=== PATIENT | male | born 1945 | race Caucasian/White ===

== ENCOUNTER → 2018-07-18 07:05 | Outpatient (CLI) | payer MEDICARE, OTHER, SELFPAY ==
[2018-07-18 08:20] LABS: Add Manual Diff / Slide Review NO; Basophils Percent Auto 0.8 % (0-2); Eosinophils Percent Auto 6.2 % (2-4); Hematocrit 42.9 % (41-53); Hemoglobin 14.9 g/dL (13.5-17.5); Lymphocytes Percent Auto 29.3 % (25-40); Mean Corpuscular HGB Conc 34.6 % (30-36); Mean Corpuscular Volume 92.5 fL (80-100); Monocytes Percent Auto 8.6 % (3-14); Neutrophils Absolute Auto 3500 /uL (3000-5900); Neutrophils Percent Auto 55.1 % (50-75); Platelet Count 247 X10^3/uL (150-400); Red Blood Cell Count 4.63 X10^6/uL (4.5-5.9); Red Cell Distribution Width 13.4 % (11.6-14.8); White Blood Cell Count 6.3 X10^3/uL (4.5-11.0)
[2018-07-18 08:44] LABS: Alanine Aminotransferase 22 IU/L (21-72); Albumin 4.3 g/dL (3.5-5.0); Albumin Globulin Ratio 1.6 (1.0-2.8); Alkaline Phosphatase 86 U/L (38-126); Aspartate Aminotransferase 27 IU/L (17-59); BUN Creatinine Ratio 11.4 (6-22); Bilirubin Total 0.6 mg/dL (0.2-1.3); Blood Urea Nitrogen 8 mg/dL (9-20); Calcium 9.9 mg/dL (8.4-10.2); Carbon Dioxide 28 mmol/L (22-32); Chloride 106 mmol/L (98-107); Cholesterol 155 mg/dL (140-199); Estimated Glomerular Filt Rate > 60.0 mL/min (>60); Globulin 2.7 g/dL (1.7-4.1); Glucose 101 mg/dL (80-110); HDL Cholesterol 48 mg/dL (40-60); HEMOLYSIS < 15 (0-50); LDL Cholesterol Calculated 88 mg/dL (<100); Potassium 3.9 mmol/L (3.4-5.1); Sodium 146 mmol/L (137-145); Triglycerides 94 mg/dL (35-150)
[2018-07-18 09:11] LABS: Thyroid Stimulating Hormone 2.29 uIU/mL (0.47-4.68)
== END ==
PROVIDERS: PCP Family Medicine; Visit Provider Family Medicine
DX: E21.3 Hyperparathyroidism, unspecified (principal); E78.5 Hyperlipidemia, unspecified; E83.52 Hypercalcemia; I10 Essential (primary) hypertension; N40.2 Nodular prostate without lower urinary tract symptoms; Z12.5 Encounter for screening for malignant neoplasm of prostate
CPT/HCPCS: 36415; 80053; 80061; 84443; 85025; G0103

== ENCOUNTER → 2019-01-02 07:19 | Outpatient (CLI) | payer MEDICARE, OTHER, SELFPAY ==
[2019-01-02 09:27] LABS: Cholesterol 160 mg/dL (140-199); HDL Cholesterol 47 mg/dL (40-60); LDL Cholesterol Calculated 100 mg/dL (<100); Triglycerides 63 mg/dL (35-150)
== END ==
PROVIDERS: Family Provider Orthopaedic Surgery; PCP Family Medicine; Visit Provider Registered Nurse
DX: E78.5 Hyperlipidemia, unspecified (principal)
CPT/HCPCS: 36415; 80061

== ENCOUNTER 2019-01-14 10:54 | Emergency (ER) | payer MEDICARE, OTHER, SELFPAY ==
[2019-01-14 11:21] VITALS: BP 150/69; PULSE 61; RESP 18; TEMP 36.9; O2SAT 100; BMI 34.3
--- NOTE | 2019-01-14 12:34 | ED.EXTPRO ---
HPI - Extremity Problem <Michelle Yepez PA-C - Last Filed: 01/14/19 18:45> General Chief complaint: Extremity Problem,Nontraumatic Stated complaint: lump lower right leg/poss clot Time Seen by Provider: 01/14/19 12:21 Source: patient Mode of arrival: ambulatory Limitations: no limitations History of Present Illness HPI Narrative: This 73-year-old male comes in due to a new lump on the right leg that he noticed yesterday. He states that this is not painful or bothersome, he noticed it in the shower after a 15 mile bike ride. He states that he has lost about 25 lb recently with diet and exercise, and possible that he has had this longer and just appeared due to weight loss. He denies any trauma. he denies any dyspnea, chest pain, or other new complaints on systems review. He states that he does have a history of some mild swelling in the lower extremities for a long time, he thinks worse on the left. No changes noted. Related Data Home Medications Medication Instructions Recorded Confirmed loratadine [Claritin] 10 mg PO PRN #0 10/20/11 12/05/18 Fish Oil (#FISH OIL CONCENTRATE) 1,000 mg PO QDAY #0 11/28/11 12/05/18 MULTIVITAMIN (#MULTIPLE VITAMINS) 1 cap PO QDAY #0 12/13/11 12/05/18 Ketotifen Fumarate (ZADITOR 0.025%) 1 drp OPHTH PRN #5 ml 02/13/13 12/05/18 cholecalciferol (vitamin D3) 1,000 3,000 unit PO DAILY cap 07/25/18 12/05/18 unit capsule amlodipine [Norvasc] 5 mg PO DAILY 01/14/19 01/14/19 simvastatin 5 mg PO BEDTIME 01/14/19 01/14/19 Previous Rx's Medication Instructions Recorded losartan 50 mg PO BID #180 tab 07/03/18 albuterol sulfate HFA 90 2 inhalation INHALATION Q4H PRN #1 07/25/18 mcg/actuation aerosol inhaler each azelastine 137 mcg (0.1 %) nasal 2 spray NASAL BID #30 ml 07/25/18 spray aerosol Allergies Allergy/AdvReac Type Severity Reaction Status Date / Time adhesive [ADHESIVE] AdvReac Mild most tapes Verified 01/14/19 11:23 ok, not sure which one caused a rsh hydromorphone [HYDROMORPHONE] AdvReac Mild iv caused Verified 01/14/19 11:23 n/v metronidazole [METRONIDAZOLE] AdvReac Mild n/v Verified 01/14/19 11:23 Penicillins [PENICILLINS] AdvReac Mild n/v Verified 01/14/19 11:23 Review of Systems <Michelle Yepez PA-C - Last Filed: 01/14/19 18:45> Review of Systems ROS Unobtainable: All systems reviewed & are unremarkable except as noted in HPI and below PFSH <Michelle Yepez PA-C - Last Filed: 01/14/19 18:45> Medical History Dandruff (Chronic) Genital warts (Chronic) Hearing loss (Chronic) Hypercalcemia (Chronic) Hypercholesterolemia (Chronic) Hypertension (Chronic) Hyperthyroidism (Chronic) Obesity (Chronic) Prediabetes (Chronic) Vitamin D deficiency (Chronic) Depression (Resolved) Surgical History (Updated 06/26/18 @ 17:00 by Anitra Kidd) History of cataract removal with insertion of prosthetic lens (Resolved) History of hip replacement (Resolved 02/19/13) History of knee replacement (Resolved 12/13/11) History of knee replacement (Resolved 12/11/14) History of orthopedic surgery (Resolved 07/1998) Status post blepharoplasty of both eyes (Resolved 10/27/09) Status post hernia repair (Resolved 01/17/14) Status post laminectomy (Resolved 05/17/11) Family History (Updated 06/26/18 @ 16:58 by Anitra Kidd) Father Alcoholism Mother FH: ovarian cancer Malignant neoplasm of esophagus, unspecified location Alcoholism Sister Age: 73 History of breast cancer Osteoarthritis of spine, unspecified spinal osteoarthritis complication status, unspecified spinal region Grandfather Alcoholism Liver disease Grandmother No problems noted. Family/Other Liver cancer Social History Smoking Status: Never smoker Family History (Updated 06/26/18 @ 16:58 by Anitra Kidd) Father Alcoholism Mother FH: ovarian cancer Malignant neoplasm of esophagus, unspecified location Alcoholism Sister Age: 73 History of breast cancer Osteoarthritis of spine, unspecified spinal osteoarthritis complication status, unspecified spinal region Grandfather Alcoholism Liver disease Grandmother No problems noted. Family/Other Liver cancer Social History Smoking Status: Never smoker Exam <BENIGNO Drummond Last Filed: 01/14/19 18:45> Narrative Exam Narrative: GENERAL APPEARANCE: Patient sitting comfortably, in no distress. NECK/THYROID: Neck supple LUNGS: Clear to auscultation bilaterally. HEART: Regular rate and rhythm without murmur, normal S1, S2, no S3 or S4. EXTREMITIES: No cyanosis or edema. No calf tenderness. numerous small varicosities noted bilaterally NEUROLOGIC: Sensation is grossly intact in the lower extremities DERMATOLOGIC: Right mid ferguson there is a circumscribed, nummular, freely mobile firm but not hard mass approximately 3.5 cm in diameter. There is no overlying skin retraction or abnormality. This is nontender Initial Vital Signs Initial Vital Signs: Vital Signs Temperature 98.5 F 01/14/19 11:21 Pulse Rate 61 01/14/19 11:21 Respiratory Rate 18 01/14/19 11:21 Blood Pressure 150/69 H 01/14/19 11:21 Pulse Oximetry 100 01/14/19 11:21 <Abi Banegas DO - Last Filed: 01/17/19 07:33> Initial Vital Signs Initial Vital Signs: Vital Signs Temperature 98.5 F 01/14/19 11:21 Pulse Rate 61 01/14/19 11:21 Respiratory Rate 18 01/14/19 11:21 Blood Pressure 150/69 H 01/14/19 11:21 Pulse Oximetry 100 01/14/19 11:21 Course <Michelle Yepez PA-C - Last Filed: 01/14/19 18:45> Additional Information: Reviewed findings with patient, this is freely mobile on exam and appears consistent with that on x-ray, could be cystic, possible lipoma as he has had them in the past. Not clear whether this is truly new as patient has lost a considerable amount of weight recently and this is not causing any discomfort. Advised that this needs further workup, but can be done as an outpatient. He is agreeable and will f/u with PCP Orders Ordered: ED Orders 01/14/19 12:44 XR tibia fibula RT 2V Stat Vital Signs - 8 hr 01/14/19 11:21 01/14/19 13:48 Temperature 98.5 F 98.0 F Pulse Rate 61 69 Respiratory Rate 18 18 Blood Pressure 150/69 H Pulse Oximetry 100 99 <Abi Banegas DO - Last Filed: 01/17/19 07:33> Orders Ordered: ED Orders 01/14/19 12:44 XR tibia fibula RT 2V Stat Vital Signs - 8 hr 01/14/19 11:21 01/14/19 13:48 Temperature 98.5 F 98.0 F Pulse Rate 61 69 Respiratory Rate 18 18 Blood Pressure 150/69 H Pulse Oximetry 100 99 MDM - Extremity (Nontraumatic) <Michelle Yepez PA-C - Last Filed: 01/14/19 18:45> Imaging Data tib/fib: Radiologist's impression: [address] [address] XRay Report Signed Patient: Valentino Madison LMR#: [id number] : 4Acct:[id number] Age/Sex: 73 / MDate of Service: 01/14/19 Loc: ED Accession Number: [id number] Procedure: XR tibia fibula RT 2V Ordering Provider: Michelle Yepez P.A-C PROCEDURE: XR TIBIA FUBULA RT 2V INDICATIONS: painless mass on mid ferguson TECHNIQUE: 2 views of the tibia and fibula were acquired. COMPARISON: None. FINDINGS: Bones: No fractures or dislocations. No suspicious bony lesions. Soft tissues: No suspicious soft tissue calcifications but there is a masslike structure that measures soft tissue in radiodensity at the anterior border of the middle third of the diaphysis of the tibia, measuring up to 2.6 cm craniocaudad and 9 mm AP dimension. It cannot be clearly seen on the frontal projection but is clearly visible on the lateral view. IMPRESSION: A soft tissue masslike structure is found that appears to correlate with the clinical history provided. MR scanning with contrast is recommended to assess for underlying etiology. This structure measures up to 2.6 cm craniocaudad and 9 mm AP dimension. Osseous erosion is not present at the immediate adjacent anterior cortical margin of the mid tibia. A soft tissue sarcoma is a potential etiology of this appearance. Dictated by: Mingo Edwards M.D. on 01/14/2019 at 13:17 Approved by: Mingo Edwards M.D. on 01/14/2019 at 13:20 Discharge Plan Departure Patient Disposition: Home Clinical Impression: Localized swelling, mass and lump, right lower limb Discharge Date/Time: 01/14/19 13:48 Interventions: ED Discharge Assessment Last Done: 01/14/19 13:48 Activity Restrictions/Additional Instructions: For now since this lump you have noticed on your leg is not bothering you, you can monitor it. It could be a cyst or fatty growth. The radiologist has recommended doing some further imaging of it to get a better look, but on x-ray and on exam today it does not appear to invade the bone. It is possible that it has been present for some time given your recent weight loss. Please follow-up with your PCP in the next week or so to re-evaluate this and determine whether any changes and to set up more studies as an outpatient such as ultrasound. Prescriptions: No Action loratadine [Claritin] 10 MG tablet 10 mg PO PRN Qty: 0 RF: 0 Fish Oil (#FISH OIL CONCENTRATE) 1,000 mg PO QDAY Qty: 0 RF: 0 MULTIVITAMIN (#MULTIPLE VITAMINS) 1 cap PO QDAY Qty: 0 RF: 0 Ketotifen Fumarate (ZADITOR 0.025%) 1 drp OPHTH PRN Qty: 5 RF: 0 losartan 50 mg tablet 50 mg PO BID Qty: 180 RF: 3 cholecalciferol (vitamin D3) 1,000 unit capsule 3,000 unit PO DAILY RF: 0 albuterol sulfate [Ventolin HFA] 90 mcg/actuation HFA aerosol inhaler 2 inhalation INHALATION Q4H PRN (Reason: shortness of breath or wheezing) Qty: 1 RF: 12 azelastine 137 mcg (0.1 %) aerosol,spray 2 spray NASAL BID Qty: 30 RF: 1 amlodipine [Norvasc] 5 mg tablet 5 mg PO DAILY RF: 0 simvastatin 5 mg tablet 5 mg PO BEDTIME RF: 0 Referrals: Cecile Dias DO [Primary Care Provider] - <Abi Banegas DO - Last Filed: 01/17/19 07:33> Cosign ED Attending Alanature Attestation: I was immediately available in the department for consultation. Documentation has been reviewed. I agree with assessment and plan.
--- NOTE | 2019-01-14 12:44 | DI.RAD.S_ITS ---
PROCEDURE: XR TIBIA FUBULA RT 2V INDICATIONS: painless mass on mid ferguson TECHNIQUE: 2 views of the tibia and fibula were acquired. COMPARISON: None. FINDINGS: Bones: No fractures or dislocations. No suspicious bony lesions. Soft tissues: No suspicious soft tissue calcifications but there is a masslike structure that measures soft tissue in radiodensity at the anterior border of the middle third of the diaphysis of the tibia, measuring up to 2.6 cm craniocaudad and 9 mm AP dimension. It cannot be clearly seen on the frontal projection but is clearly visible on the lateral view. IMPRESSION: A soft tissue masslike structure is found that appears to correlate with the clinical history provided. MR scanning with contrast is recommended to assess for underlying etiology. This structure measures up to 2.6 cm craniocaudad and 9 mm AP dimension. Osseous erosion is not present at the immediate adjacent anterior cortical margin of the mid tibia. A soft tissue sarcoma is a potential etiology of this appearance. Dictated by: Mingo Edwards M.D. on 01/14/2019 at 13:17 Approved by: Mingo Edwards M.D. on 01/14/2019 at 13:20
[2019-01-14 13:48] VITALS: PULSE 69; RESP 18; TEMP 36.7; O2SAT 99
== END 2019-01-14 13:48 | disposition home or self-care (01) ==
PROVIDERS: Emergency Provider Internal Medicine; Family Provider Orthopaedic Surgery; PCP Family Medicine
DX: R22.41 Localized swelling, mass and lump, right lower limb (principal)
CPT/HCPCS: 73590; 99282; 99283

== ENCOUNTER → 2019-01-16 13:36 | Outpatient (CLI) | payer MEDICARE, OTHER, SELFPAY ==
--- NOTE | 2019-01-16 13:39 | DI.US.S_ITS ---
PROCEDURE: US EXTREMITY NONVASC LOWER RT INDICATIONS: LUMP ON LOWER RT LEG, SEE XRAY TECHNIQUE: Real-time scanning was performed of the right lower leg, with image documentation. COMPARISON: [facility], CR, XR TIBIA FIBULA RT 2V, 01/14/2019, 12:49. FINDINGS: Complex, predominantly cystic fluid collection seen along the anterior soft tissues adjacent to the mid tibial shaft. IMPRESSION: Complex, predominantly cystic avascular soft tissue mass corresponding to the density seen on prior plain film. Findings are nonspecific and could represent a evolving hematoma; however differential is wide and other benign/malignant or inflammatory type masses cannot be excluded. Recommend clinical correlation and if indicated, sonographically directed aspiration could be performed for pathologic diagnosis. Dictated by: Michael AYERS Interpreted: Teodoro Lindo MD on 01/16/2019 at 16:06 Approved by: Teodoro Lindo M.D. on 01/16/2019 at 16:50
== END ==
PROVIDERS: Family Provider Orthopaedic Surgery; PCP Family Medicine; Visit Provider Family Medicine
DX: R22.41 Localized swelling, mass and lump, right lower limb (principal)
CPT/HCPCS: 76882

== ENCOUNTER → 2019-01-25 14:10 | Outpatient (CLI) | payer MEDICARE, OTHER, SELFPAY ==
--- NOTE | 2019-01-25 14:14 | DI.US.S_ITS ---
PROCEDURE: US FINE NEEDLE ASPIRATION INDICATIONS: R/O MALIGNANCY TECHNIQUE: The indications, alternatives, benefits, risks, and complications of the procedure were explained to the patient. Written informed consent was obtained and placed in the chart. The area of interest, right anteriorlower leg, was examined sonographically and a site was chosen for ultrasound guided percutaneous sampling. The skin was prepared and draped in the usual fashion, and anesthetized with 1% lidocaine infiltrated from the skin down to the lesion. An 18 gauge needle was directed into the cyst under sonographic guidance and through this, 10 mL of clear, thin, yellow fluid was aspirated. Compression techniques were used to aspirate the lesion to near completion. The needle was removed. Specimen was sent to the lab for cytology. A bandage was applied to the area of access at completion of the study. COMPARISON: None. FINDINGS: Location(s) of lesion(s) sampled: Right anterior lower leg subcutaneous location. Newcomb: 18 gauge needle. Number of passes: One single pass made Medications: 1% lidocaine for local anaesthesia. Complications: None. IMPRESSION: Successful ultrasound-guided right anterior lower leg cystic lesion aspiration, with cytology results pending. Dictated by: Dede Pennington M.D. on 01/25/2019 at 16:24 Approved by: Dede Pennington M.D. on 01/25/2019 at 16:28
--- NOTE | 2019-01-25 15:24 | PATH_ITS ---
Note [facility] Accession Number: [id number] TESTS RESULT FLAG UNITS REF RANGE LAB Clinician Provided Cytology Information No. of containers..01 ThinPrep Vial 01 R LOWER LEG PALPABLE DIAGNOSIS: 02 RIGHT LOWER LEG, PALPABLE LUMP: NEGATIVE FOR MALIGNANT CELLS. Pathologist ICD10: 02 R22.9 02 Sangeetha Lu MD, Pathologist NPI- [id number] [employer], Program Admin (ASC) 01 10 CC, YELLOW, CLEAR /LCS FLAG LEGEND: L-Low Normal,H-High Normal,LL-Alert Low,HH-Alert High <-Panic Low,>-Panic High,A-Abnormal,AA-Critical Abnormal Performed at: 01 =Z [facility] [address], [place] [address] Finn Coffman MD, [facility] [place] [address] [place] [id number] Sangeetha Lu MD, Performed at: 01 [facility] [address], [place], [place] [id number] MD Finn Coffman MD Phone: [phone]
== END ==
PROVIDERS: Family Provider Orthopaedic Surgery; PCP Family Medicine; Visit Provider Nurse Practitioner
DX: R22.41 Localized swelling, mass and lump, right lower limb (principal)
CPT/HCPCS: 10005

== ENCOUNTER → 2019-10-25 07:12 | Outpatient (CLI) | payer MEDICARE, OTHER, SELFPAY ==
[2019-10-25 08:32] LABS: BUN Creatinine Ratio 24.3 (6-22); Blood Urea Nitrogen 17 mg/dL (9-20); Calcium 10.4 mg/dL (8.4-10.2); Carbon Dioxide 28 mmol/L (22-32); Chloride 107 mmol/L (98-107); Estimated Glomerular Filt Rate > 60.0 mL/min (>60); Glucose 101 mg/dL (80-110); HEMOLYSIS < 15 (0-50); Potassium 3.7 mmol/L (3.4-5.1); Sodium 143 mmol/L (137-145)
[2019-10-28 07:57] LABS: Lipoprofile NMR SEE SEPARATE REPORTS
[2019-10-29 13:29] LABS: Parathyroid Hormone Int 52 pg/mL (14-64)
== END ==
PROVIDERS: Family Provider Orthopaedic Surgery; PCP Family Medicine; Referring Provider Family Medicine; Visit Provider Family Medicine
DX: Z00.00 Encounter for general adult medical examination without abnormal findings (principal); E21.3 Hyperparathyroidism, unspecified; E83.52 Hypercalcemia; I10 Essential (primary) hypertension
CPT/HCPCS: 36415; 80048; 83704; 83970

== ENCOUNTER → 2020-04-30 07:12 | Outpatient (CLI) | payer MEDICARE, OTHER, SELFPAY ==
[2020-04-30 08:32] LABS: BUN Creatinine Ratio 25.7 (6-22); Blood Urea Nitrogen 18 mg/dL (9-20); Calcium 10.1 mg/dL (8.4-10.2); Carbon Dioxide 29 mmol/L (22-32); Chloride 108 mmol/L (98-107); Estimated Glomerular Filt Rate > 60.0 mL/min (>60); Glucose 88 mg/dL (80-110); HEMOLYSIS < 15 (0-50); Potassium 3.9 mmol/L (3.4-5.1); Sodium 141 mmol/L (137-145)
== END ==
PROVIDERS: Family Provider Orthopaedic Surgery; PCP Family Medicine; Referring Provider Family Medicine; Visit Provider Family Medicine
DX: E83.52 Hypercalcemia (principal)
CPT/HCPCS: 36415; 80048

== ENCOUNTER → 2020-06-05 09:08 | Outpatient (CLI) | payer MEDICARE, OTHER, SELFPAY ==
--- NOTE | 2020-06-05 09:09 | DI.ECHO.S_ITS ---
[facility] +---------+ : : [address] : : : : [id number] : : : : Phone: [phone]+ Echocardiogram Report + + :Name: ANSHU BURNS Study Date: 06/05/2020 Height: 65 in : :[facility] Weight: 165 lb : : Gender: Male BSA: 1.8 m2 : :: 1945 Age: 75 yrs BP: 115/65 mmHg: :Reason For Study: BRADYCARDIA, HT BLOCK : : Performed By: Chintan García : :Referring: NIC MEDINA : + + Interpretation Summary 1) Normal left ventricular size, thickness, and systolic function (EF 55-60%). 2) Apical anterior wall appears hypokinetic. 3) Normal right ventricular size and function. 4) The left atrium is severely dilated. 5) No significant valvular abnormalities. 6) No prior Echo available for comparison. Procedure: A two-dimensional transthoracic echocardiogram with color flow and Doppler was performed. The study quality was technically good. There is no prior echocardiogram noted for this patient. The patient was in normal sinus rhythm during the exam. The patient had occasional PACs during the exam. Left Ventricle: The left ventricle is normal in size. There is normal left ventricular wall thickness. The ejection fraction is estimated to be 55-60%. Apical anterior wall is hypokinetic. Right Ventricle: The right ventricle is normal in size and function. Atria: The left atrium is severely dilated. The right atrium is mildly dilated. The interatrial septum is intact with no evidence for an atrial septal defect. Mitral Valve: The mitral valve leaflets appear mildly thickened, but open well. There is trace mitral regurgitation. Aortic Valve: The aortic valve is trileaflet. The aortic valve opens well. There is no aortic valve stenosis. No aortic regurgitation is present. Tricuspid Valve: The tricuspid valve is normal in structure and function. No tricuspid regurgitation. Pulmonary artery pressures cannot be estimated because of the lack of a measurable TR jet velocity. Pulmonic Valve: The pulmonic valve is not well visualized. There is trace pulmonic regurgitation. Great Vessels: The aortic root is normal size. The dimensions of the ascending aorta are normal. The pulmonary artery is normal size. The IVC is of normal diameter and collapses greater than 50% with a sniff. This suggests a low right atrial pressure of 3 mm Hg. Pericardium/ Pleura There is no pericardial effusion. There is no pleural effusion. MMode/2D Measurements & Calculations LVIDd: 5.0 cm LVOT diam: 2.0 cm LVIDs: 2.7 cm Ao root diam: 3.4 cm FS: 46.1 % asc Aorta Diam: 3.4 cm EPSS: 0.17 cm Ao Arch Diam (Prox Trans): 2.6 cm IVSd: 0.90 cm LVPWd: 0.97 cm LV regalado. diameter/BSA (cm/m^2): 2.7 LV sys. diameter/BSA (cm/m^2): 1.5 LA dimension: 4.4 cm RA long axis: 5.3 cm LA A2 area: 27.8 cm2 RA area: 21.1 cm2 LA A4 area: 30.7 cm2 RA vol: 71.8 ml LA length (vol): 6.4 cm RA : 39.4 ml/m2 LA vol: 113.1 ml IVC diam: 2.1 cm LA vol index: 62.0 ml/m2 TAPSE: 3.0 cm Doppler Measurements & Calculations Ao V2 max: 141.8 cm/sec LVOT Max Jewel: 99.8 cm/sec Ao V2 mean: 114.8 cm/sec LV V1 max P.0 mmHg Ao max P.0 mmHg LV V1 VTI: 23.4 cm Ao mean P.5 mmHg VINCE(I,D): 2.5 cm2 Ao V2 VTI: 30.1 cm VINCE(V,D): 2.3 cm2 sev ratio: 0.78 VINCE indexed to BSA (cm^2/m^2): 1.4 MV E max jewel: 54.8 cm/sec PA V2 max: 74.3 cm/sec MV A max jewel: 70.9 cm/sec PA V2 mean: 57.7 cm/sec MV E/A: 0.77 PA mean P.4 mmHg Med Peak E' Jewel: 5.6 cm/sec PA pr(Accel): 17.3 mmHg E/E' med: 9.8 Lat Peak E' Jewel: 8.5 cm/sec E/E' lat: 6.4 E/e' average: 8.1 MV dec time: 0.24 sec SV(LVOT): 75.1 ml Reading Physician:12:37 PM
== END ==
PROVIDERS: Family Provider Orthopaedic Surgery; PCP Family Medicine; Referring Provider Family Medicine; Visit Provider Family Medicine
DX: I44.0 Atrioventricular block, first degree (principal); R00.1 Bradycardia, unspecified
CPT/HCPCS: 93306

== ENCOUNTER → 2020-06-12 09:36 | Outpatient (CLI) | payer MEDICARE, OTHER, SELFPAY ==
--- NOTE | 2020-06-12 09:37 | DI.RAD.S_ITS ---
PROCEDURE: XR FINGER RT MIN 2V INDICATIONS: swelling of dip of 5th finger TECHNIQUE: AP hand, 2 views of the right 5th finger(s) acquired. COMPARISON: None. FINDINGS: Bones: No acute fractures or dislocations. No suspicious bony lesions. Degenerative changes of the right hand noted in the distal interphalangeal joints of the 2nd through 5th fingers, interphalangeal joint of the right thumb, right thumb metacarpophalangeal joint, and proximal interphalangeal joint of the 5th finger. Degenerative changes are severe involving the right 5th proximal interphalangeal joint as well as the distal interphalangeal joint of the 4th finger. Moderate-severe degenerative changes of the distal interphalangeal joints of the 2nd and 5th fingers. There are hypertrophic osteoarthritic changes at the 5th proximal interphalangeal joint and distal interphalangeal joints of the 2nd and 4th fingers. No suspicious osseous erosion. No periarticular osteopenia. Soft tissues: No suspicious soft tissue calcifications. 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 There are advanced degenerative changes involving the distal and proximal interphalangeal joints of the right 5th finger. 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 Dictated by: Adilson Krishnan M.D. on 06/12/2020 at 10:13 Approved by: Adilson Krishnan M.D. on 06/12/2020 at 10:17
== END ==
PROVIDERS: Family Provider Orthopaedic Surgery; PCP Family Medicine; Referring Provider Family Medicine; Visit Provider Family Medicine
DX: M25.441 Effusion, right hand (principal)
CPT/HCPCS: 73140

== ENCOUNTER → 2020-06-24 13:29 | Outpatient (CLI) | payer MEDICARE, OTHER, SELFPAY ==
--- NOTE | 2020-07-17 16:54 | PM.CARDMON.1 ---
[facility] Report Referral & Results Date Patient Seen: 06/24/20 Requesting provider: Cecile Dias Indication: AV block Duration of monitoring (days): 7 Diary information: There was 1 patient triggered event associated with sinus rhythm and PVCs Data: Minimum heart rate identified was 39 beats per minute at 23:40 on 06/30/2020 Maximum sinus heart rate was 153 beats per minute at 14:35 on 06/29/2020 Maximum overall heart rate was 171 beats per minute at 22:08 on 06/27/2020 during a 4 beat run of nonsustained ventricular tachycardia Less than 1% of identified beats were supraventricular ectopic in origin. Approximately 9.1% of identified beats were ventricular ectopic in origin including a 1 minutes 52nd run of ventricular trigeminy and a 43.2nd run of ventricular bigeminy Patient had 12 runs of SVT/atrial tachycardia with the fastest being 5 beats at 160 beats per minute and the longest lasting 8 beats at a rate of 133 beats per minute There also 3 runs of nonsustained ventricular tachycardia with the longest being the 4 beat run mentioned above There were no pauses or more serious atrioventricular block identified on this study Impression: Patient with relatively frequent PVCs and more rare very brief runs of nonsustained VT and SVT. Clinical correlation suggested
== END ==
PROVIDERS: Family Provider Orthopaedic Surgery; PCP Family Medicine; Referring Provider Family Medicine; Visit Provider Family Medicine
DX: I44.0 Atrioventricular block, first degree (principal); R00.1 Bradycardia, unspecified
CPT/HCPCS: 0296T; 0298T

== ENCOUNTER → 2021-05-20 07:06 | Outpatient (CLI) | payer MEDICARE, OTHER, SELFPAY ==
[2021-05-20 08:39] LABS: Alanine Aminotransferase 13 IU/L (<50); Albumin 4.2 g/dL (3.5-5.0); Albumin Globulin Ratio 1.8 (1.0-2.8); Alkaline Phosphatase 78 U/L (38-126); Aspartate Aminotransferase 29 IU/L (17-59); BUN Creatinine Ratio 20.3 (6-22); Bilirubin Total 0.7 mg/dL (0.2-1.3); Blood Urea Nitrogen 13 mg/dL (9-20); Calcium 10.2 mg/dL (8.4-10.2); Carbon Dioxide 27 mmol/L (22-32); Chloride 108 mmol/L (98-107); Cholesterol 158 mg/dL (140-199); Estimated Glomerular Filt Rate > 60.0 mL/min (>60); Globulin 2.3 g/dL (1.7-4.1); Glucose 95 mg/dL (80-110); HDL Cholesterol 78 mg/dL (40-60); HEMOLYSIS < 15 (0-50); LDL Cholesterol Calculated 74 mg/dL (<100); Potassium 4.5 mmol/L (3.4-5.1); Sodium 139 mmol/L (137-145); Total Protein 6.5 g/dL (6.3-8.2); Triglycerides 32 mg/dL (35-150)
== END ==
PROVIDERS: Family Provider Orthopaedic Surgery; PCP Family Medicine; Referring Provider Family Medicine; Visit Provider Family Medicine
DX: I25.10 Atherosclerotic heart disease of native coronary artery without angina pectoris (principal); I10 Essential (primary) hypertension; E78.5 Hyperlipidemia, unspecified; I44.0 Atrioventricular block, first degree; R00.1 Bradycardia, unspecified
CPT/HCPCS: 36415; 80053; 80061

== ENCOUNTER → 2021-07-27 07:12 | Outpatient (CLI) | payer MEDICARE, OTHER, SELFPAY ==
[2021-07-27 07:49] LABS: Add Manual Diff / Slide Review NO; Basophils Absolute Auto 0 /uL (0-100); Basophils Percent Auto 0.9 % (0-2); Eosinophils Absolute Auto 300 /uL (0-450); Eosinophils Percent Auto 6.4 % (2-4); Hematocrit 42.1 % (41-53); Hemoglobin 14.2 g/dL (13.5-17.5); Lymphocytes Absolute Auto 1400 /uL (1100-4500); Lymphocytes Percent Auto 29.4 % (25-40); Mean Corpuscular HGB Conc 33.7 % (30-36); Mean Corpuscular Hemoglobin 32.3 PG (26-34); Mean Corpuscular Volume 95.9 fL (80-100); Monocytes Absolute Auto 400 /uL (0-900); Monocytes Percent Auto 7.8 % (3-14); Neutrophils Absolute Auto 2700 /uL (1500-7000); Neutrophils Percent Auto 55.5 % (50-75); Platelet Count 211 X10^3/uL (150-400); Red Blood Cell Count 4.39 X10^6/uL (4.5-5.9); Red Cell Distribution Width 13.9 % (11.6-14.8); White Blood Cell Count 4.8 X10^3/uL (4.5-11.0)
[2021-07-27 08:11] LABS: BUN Creatinine Ratio 20.3 (6-22); Blood Urea Nitrogen 13 mg/dL (9-20); C-Reactive Protein Quant < 0.5 mg/dL (<1.0); Calcium 10.2 mg/dL (8.4-10.2); Carbon Dioxide 28 mmol/L (22-32); Chloride 106 mmol/L (98-107); Estimated Glomerular Filt Rate > 60.0 mL/min (>60); Glucose 96 mg/dL (80-110); HEMOLYSIS < 15 (0-50); Potassium 4.1 mmol/L (3.4-5.1); Sodium 140 mmol/L (137-145)
[2021-07-27 08:20] LABS: Erythrocyte Sedimentation Rate 8 MM/HR (0-15)
[2021-07-27 09:29] LABS: Creatinine Urine Random 87.3 mg/dL
[2021-07-27 09:33] LABS: Microalbumi Creatinin Ratio Ur 11.4 ug/mg CR (<30)
== END ==
PROVIDERS: Family Provider Orthopaedic Surgery; PCP Family Medicine; Referring Provider Family Medicine; Visit Provider Family Medicine
DX: I10 Essential (primary) hypertension (principal); R61 Generalized hyperhidrosis
CPT/HCPCS: 36415; 80048; 82043; 82570; 85025; 85651; 86140

== ENCOUNTER → 2021-08-27 07:30 | Outpatient (CLI) | payer MEDICARE, OTHER, SELFPAY ==
[2021-08-27 09:07] LABS: BUN Creatinine Ratio 19.4 (6-22); Blood Urea Nitrogen 13 mg/dL (9-20); Calcium 10.2 mg/dL (8.4-10.2); Carbon Dioxide 28 mmol/L (22-32); Chloride 105 mmol/L (98-107); Creatine Kinase 54 U/L (55-170); Estimated Glomerular Filt Rate > 60.0 mL/min (>60); Glucose 95 mg/dL (80-110); HEMOLYSIS < 15 (0-50); Potassium 4.2 mmol/L (3.4-5.1); Sodium 140 mmol/L (137-145)
== END ==
PROVIDERS: Family Provider Orthopaedic Surgery; PCP Family Medicine; Referring Provider Family Medicine; Visit Provider Family Medicine
DX: I10 Essential (primary) hypertension (principal); R53.1 Weakness; R53.83 Other fatigue; R61 Generalized hyperhidrosis
CPT/HCPCS: 36415; 80048; 82550

== ENCOUNTER → 2021-09-22 07:07 | Outpatient (CLI) | payer MEDICARE, OTHER, SELFPAY ==
--- NOTE | 2021-09-22 07:08 | DI.US.S_ITS ---
PROCEDURE: US CAROTID DOPPLER BI INDICATIONS: TINNITUS TECHNIQUE: Color and pulse Doppler interrogation was performed of both carotid systems, with image documentation and velocity measurements. COMPARISON: [facility], , CAROTID ARTERY DOPPLER BILAT, 04/07/2015, 9:05. FINDINGS: Stenosis calculations are based on SRU (Society of Radiologists in Ultrasound) criteria. Right side: Brachial blood pressure: 141/75 mm Hg. Common carotid artery peak systolic velocity: 125 cm/sec. Internal carotid artery peak systolic velocity: 0 cm/sec. Internal carotid artery end diastolic velocity: 0 cm/sec. External carotid artery peak systolic velocity: 90 cm/sec. ICA/CCA peak systolic ratio: Not applicable. Hays scale imaging description: Atherosclerotic plaque is seen involving proximal right internal carotid artery at its origin with absence of flow in the right internal carotid artery concerning for occluded right ICA at its origin. Percent internal carotid artery stenosis: Occluded.. Vertebral artery: Flow direction is antegrade. Left side: Brachial blood pressure: 142/76 mm Hg. Common carotid artery peak systolic velocity: 86 cm/sec. Internal carotid artery peak systolic velocity: 79 cm/sec. Internal carotid artery end diastolic velocity: 21 cm/sec. External carotid artery peak systolic velocity: 117 cm/sec. ICA/CCA peak systolic ratio: 0.91. Hays scale imaging description: Mild atherosclerotic plaques are noted scattered in left carotid arteries. Percent internal carotid artery stenosis: Less than 50%. Vertebral artery: Flow direction is antegrade. IMPRESSION: 1. 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 2. Mild atherosclerotic disease in left internal carotid artery with less than 50% stenosis. Dictated by: Teodoro Lindo M.D. on 09/28/2021 at 14:40 Approved by: Teodoro Lindo M.D. on 09/28/2021 at 14:51
== END ==
PROVIDERS: Family Provider Orthopaedic Surgery; PCP Family Medicine; Referring Provider Family Medicine; Visit Provider Family Medicine
DX: I65.23 Occlusion and stenosis of bilateral carotid arteries (principal); H93.A3 Pulsatile tinnitus, bilateral
CPT/HCPCS: 93880

== ENCOUNTER → 2021-10-26 07:16 | Outpatient (CLI) | payer MEDICARE, OTHER, SELFPAY ==
[2021-10-26 08:42] LABS: BUN Creatinine Ratio 19.4 (6-22); Blood Urea Nitrogen 13 mg/dL (9-20); Calcium 10.3 mg/dL (8.4-10.2); Carbon Dioxide 29 mmol/L (22-32); Chloride 108 mmol/L (98-107); Estimated Glomerular Filt Rate > 60.0 mL/min (>60); Glucose 99 mg/dL (80-110); HEMOLYSIS 16 (0-50); Potassium 3.9 mmol/L (3.4-5.1); Sodium 140 mmol/L (137-145)
== END ==
PROVIDERS: Family Provider Orthopaedic Surgery; PCP Family Medicine; Referring Provider Family Medicine; Visit Provider Family Medicine
DX: Z01.812 Encounter for preprocedural laboratory examination (principal)
CPT/HCPCS: 36415; 80048

== ENCOUNTER → 2021-10-27 12:40 | Outpatient (CLI) | payer MEDICARE, OTHER, SELFPAY ==
--- NOTE | 2021-10-27 | DI.CT.S_ITS ---
PROCEDURE: CT ANGIO HEAD AND NECK, CT brain with and without contrast INDICATIONS: CAROTID OCCLUSION TECHNIQUE: Helical axial CT of the brain was obtained before and after intravenous contrast injection and reformatted in multiple planes. Additionally, helical axial CT of the head and neck was obtained after an intravenous contrast injection utilizing an angiographic protocol. Automated exposure control and/or adjustment of the dose parameters according to patient's size was utilized for radiation dose reduction. COMPARISON: [facility], CAROTID ARTERY DOPPLER BILAT, 04/07/2015, 9:05. [facility], [place] CAROTID DOPPLER BI, 09/22/2021, 7:30. FINDINGS: Noncontrast CT Brain: Cerebrum, cerebellum and brainstem: There is appropriate cerebral and cerebellar volume. No evidence of intracranial hemorrhage, mass effect or extra-axial fluid collections. No white matter disease. Hays-white distinction is well preserved throughout the exam. Ventricles: Appropriate size and position. No evidence of hydrocephalus. 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 The bony sella, pituitary gland and infundibulum are unremarkable. Posterior fossa and cerebellum are unremarkable. Visualized portions of the external auditory canals and tympanic cavity are within normal limits. Calvarium and Scalp: No scalp soft tissue swelling. The underlying calvarium is intact without skull fracture or lytic lesion. Paranasal Sinuses: Unremarkable as visualized. No acute sinusitis. Mastoids: Unremarkable as visualized. No mastoid effusion. 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 Left ICA is widely patent. Anterior cerebral arteries: Unremarkable. No significant stenosis. No occlusion. No aneurysm. Middle cerebral arteries: The right MCA is quite diminutive and probably delayed with filling through several collaterals. The posterior aspect of the right MCA territory is supplied by the right ASSURANCE S[employer]CING MANAGER. Right posterior communicating artery is not present. Left MCA unremarkable. Posterior cerebral arteries: As above. No significant stenosis. No occlusion. No aneurysm. Basilar artery: Unremarkable. No significant stenosis. No occlusion. No aneurysm. Vertebral arteries: Unremarkable. No significant stenosis. No dissection or occlusion. Dural venous sinuses: Unremarkable given phase of enhancement. Other: Arterial phase brain parenchyma unremarkable. Neck CT Angiogram: Internal carotid arteries: Proximal right cervical ICA is significantly hypoplastic, and the distal ICA is aplastic. Left ICA is widely patent. Common carotid arteries: Calcified S gross is noted involving the distal left ICA without stenosis. External carotid arteries: Unremarkable. No occlusion. Vertebral arteries: Unremarkable. No significant stenosis. No dissection or occlusion. Aortic arch and mediastinum: Unremarkable. Other: Arterial phase neck soft tissue within normal limits. Both lung apices are clear. Multilevel degenerative disc disease and arthropathy in the cervical spine results in reversal the normal cervical lordosis and moderate central stenosis at C4-5. IMPRESSION: 1. Congenital absence of the right ICA. Proximal right cervical ICA is significantly hypoplastic, and the distal and intracranial ICA are absent. Right carotid canal at the skull base is absent. 2. Right MCA is also hypoplastic and supplied through several collaterals 3. No evidence of intracranial aneurysm or vascular malformation. Any quantitative measurements of stenosis were performed using NASCET criteria. Approved by: Dipesh Ramírez M.D. on 10/27/2021 at 17:38
== END ==
PROVIDERS: Family Provider Orthopaedic Surgery; PCP Family Medicine; Referring Provider Family Medicine; Visit Provider Family Medicine
DX: I65.21 Occlusion and stenosis of right carotid artery (principal); H93.A3 Pulsatile tinnitus, bilateral; Q27.8 Other specified congenital malformations of peripheral vascular system
CPT/HCPCS: 70496; 70498; Q9967

== ENCOUNTER → 2022-08-01 07:02 | Outpatient (CLI) | payer MEDICARE, OTHER, SELFPAY ==
[2022-08-01 09:15] LABS: Hematocrit 40.7 % (41-53); Hemoglobin 13.8 g/dL (13.5-17.5); Mean Corpuscular HGB Conc 33.9 % (30-36); Mean Corpuscular Hemoglobin 32.2 PG (26-34); Mean Corpuscular Volume 95.2 fL (80-100); Platelet Count 204 X10^3/uL (150-400); Red Blood Cell Count 4.27 X10^6/uL (4.5-5.9); Red Cell Distribution Width 13.3 % (11.6-14.8); White Blood Cell Count 4.6 X10^3/uL (4.5-11.0)
[2022-08-01 09:49] LABS: Alanine Aminotransferase 14 IU/L (<50); Albumin 3.8 g/dL (3.5-5.0); Albumin Globulin Ratio 1.5 (1.0-2.8); Alkaline Phosphatase 91 U/L (38-126); Aspartate Aminotransferase 25 IU/L (17-59); BUN Creatinine Ratio 16.4 (6-22); Bilirubin Total 0.7 mg/dL (0.2-1.3); Blood Urea Nitrogen 11 mg/dL (9-20); Calcium 9.7 mg/dL (8.4-10.2); Carbon Dioxide 26 mmol/L (22-32); Chloride 106 mmol/L (98-107); Cholesterol 150 mg/dL (140-199); Estimated Glomerular Filt Rate > 60 mL/min (>60); Globulin 2.5 g/dL (1.7-4.1); Glucose 93 mg/dL (80-110); HDL Cholesterol 65 mg/dL (40-60); HEMOLYSIS < 15 (0-50); LDL Cholesterol Calculated 78 mg/dL (<100); Potassium 4.2 mmol/L (3.4-5.1); Sodium 141 mmol/L (137-145); Total Protein 6.3 g/dL (6.3-8.2); Triglycerides 37 mg/dL (35-150)
[2022-08-01 09:56] LABS: Vitamin D 25 Hydroxy (D3) 53.5 ng/mL (30.0-100.0)
[2022-08-01 10:14] LABS: Prostate Specific Antigen Scrn 2.11 ng/mL (0.1-4.0)
[2022-08-01 10:53] LABS: Creatinine Urine Random 106.6 mg/dL; Protein (Total) Urine Random 7 mg/dL (0-12); Protein Creatinine Ratio Urine 0.06 GRAM/24H
== END ==
PROVIDERS: Family Provider Orthopaedic Surgery; PCP Family Medicine; Referring Provider Family Medicine; Visit Provider Family Medicine
DX: E78.2 Mixed hyperlipidemia (principal); Z12.5 Encounter for screening for malignant neoplasm of prostate; I10 Essential (primary) hypertension
CPT/HCPCS: 36415; 80053; 80061; 82306; 82570; 84156; 85027; G0103

== ENCOUNTER → 2023-02-28 14:16 | Outpatient (CLI) | payer MEDICARE, OTHER, SELFPAY ==
[2023-02-28 15:32] LABS: Free T3, Triiodothyronine Free 3.71 pg/mL (2.77-5.27); Free T4, Direct Thyroxine 0.94 ng/dL (0.78-2.19)
[2023-02-28 15:45] LABS: Thyroid Stimulating Hormone 0.938 uIU/mL (0.47-4.68)
== END ==
PROVIDERS: Family Provider Orthopaedic Surgery; PCP Family Medicine; Referring Provider Family Medicine; Visit Provider Family Medicine
DX: E03.9 Hypothyroidism, unspecified (principal); R00.1 Bradycardia, unspecified
CPT/HCPCS: 36415; 84439; 84443; 84481

== ENCOUNTER → 2023-07-14 07:23 | Outpatient (CLI) | payer MEDICARE, OTHER, SELFPAY ==
[2023-07-14 08:44] LABS: Hematocrit 41.5 % (41-53); Hemoglobin 14.4 g/dL (13.5-17.5); Mean Corpuscular HGB Conc 34.7 % (30-36); Mean Corpuscular Hemoglobin 32.7 PG (26-34); Mean Corpuscular Volume 94.3 fL (80-100); Platelet Count 221 X10^3/uL (150-400); Red Cell Distribution Width 13.7 % (11.6-14.8); White Blood Cell Count 5.6 X10^3/uL (4.5-11.0)
[2023-07-14 08:49] LABS: Alanine Aminotransferase 17 IU/L (<50); Albumin 3.9 g/dL (3.5-5.0); Albumin Globulin Ratio 1.4 (1.0-2.8); Alkaline Phosphatase 85 U/L (38-126); Aspartate Aminotransferase 28 IU/L (17-59); BUN Creatinine Ratio 20.6 (6-22); Bilirubin Total 0.7 mg/dL (0.2-1.3); Blood Urea Nitrogen 14 mg/dL (9-20); Calcium 10.1 mg/dL (8.4-10.2); Carbon Dioxide 29 mmol/L (22-32); Chloride 106 mmol/L (98-107); Cholesterol 170 mg/dL (140-199); Estimated Glomerular Filt Rate > 60 mL/min (>60); Globulin 2.8 g/dL (1.7-4.1); Glucose 92 mg/dL (80-110); HDL Cholesterol 68 mg/dL (40-60); HEMOLYSIS < 15 (0-50); LDL Cholesterol Calculated 92 mg/dL (<100); Potassium 4.1 mmol/L (3.4-5.1); Sodium 141 mmol/L (137-145); Total Protein 6.7 g/dL (6.3-8.2); Triglycerides 51 mg/dL (35-150)
== END ==
PROVIDERS: Family Provider Orthopaedic Surgery; PCP Family Medicine; Referring Provider Family Medicine; Visit Provider Family Medicine
DX: I10 Essential (primary) hypertension (principal); E78.5 Hyperlipidemia, unspecified
CPT/HCPCS: 36415; 80053; 80061; 85027

== ENCOUNTER → 2023-07-26 10:20 | Outpatient (CLI) | payer MEDICARE, OTHER, SELFPAY ==
--- NOTE | 2023-07-26 10:21 | DI.US.S_ITS ---
PROCEDURE: US ABDOMEN LIMITED INDICATIONS: RIGHT GROIN PAIN TECHNIQUE: Real-time focused scanning was performed of the abdomen, with image documentation. COMPARISON: None. FINDINGS: There is a gap seen within the abdominal wall that measures 1.8 cm, immediately medial to the iliac vessels. This hernia contains bowel and measures 6.3 x 1.4 x 2.5 cm. No significant change can be seen with Valsalva maneuver. IMPRESSION: There is a bowel containing hernia within the right groin, immediately medial to the iliac vessels. Surgical consultation is recommended. If clinically appropriate, a CT of the area with at least IV contrast could also be considered for further evaluation. Dictated by: Pavel Bryant M.D. on 07/26/2023 at 15:57 Approved by: aPvel Bryant M.D. on 07/26/2023 at 15:59
== END ==
PROVIDERS: Family Provider Orthopaedic Surgery; PCP Family Medicine; Referring Provider Family Medicine; Visit Provider Family Medicine
DX: K43.9 Ventral hernia without obstruction or gangrene (principal); R10.31 Right lower quadrant pain
CPT/HCPCS: 76705

== ENCOUNTER 2023-09-27 07:49 | Day surgery (SDC) | payer MEDICARE, OTHER, SELFPAY ==
[2023-09-22 12:20] VITALS: BMI 29.1
--- NOTE | 2023-09-26 09:24 | P.HP_ITS ---
History of Present Illness History of Present Illness Date Patient Seen: 09/27/23 Time Patient Seen: 09:33 Chief complaint: [facility] [place] Narrative: 78 y.o man with a recurrent right inguinal hernia previous open repair. here for laparoscoic right inguinal hernia repair. No interval changes in health. 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 (~11/12/20) Osteoarthritis involving multiple joints on both sides of body Basal cell carcinoma of lower leg Seborrheic keratosis 1st degree AV block Bradycardia Impotence of organic origin Prostate nodule Hyperlipidemia, unspecified Overweight (BMI 25.0-29.9) (~2019) Obesity (BMI 30.0-34.9) Depression Vitamin D deficiency Hearing loss Prediabetes Hyperthyroidism Genital warts Dandruff 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) Diverticulosis of large intestine without hemorrhage (11/25/15) Internal hemorrhoids (11/25/15) Hyperparathyroidism (05/29/15) Hypercalcemia (03/18/15) 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) Hypertension Surgical History Hx of right inguinal hernia repair (2013) History of angioplasty (10/09/20) History of orthopedic surgery (07/1998) Status post blepharoplasty of both eyes (10/27/09) History of cataract removal with insertion of prosthetic lens Status post laminectomy (05/17/11) Status post hernia repair (01/17/14) History of hip replacement (02/19/13) History of knee replacement (12/11/14) History of knee replacement (12/13/11) Family History Father Alcoholism Mother FH: ovarian cancer Malignant neoplasm of esophagus, unspecified location Alcoholism Sister Age: 78 History of breast cancer Osteoarthritis of spine, unspecified spinal osteoarthritis complication status, unspecified spinal region Grandfather Alcoholism Liver disease Grandmother No problems noted. Family/Other Liver cancer Social History household members: spouse Smoking Status: Never smoker alcohol intake: current Meds Home Medications and Allergies Home Medications Medication Instructions Recorded Confirmed Type loratadine 10 mg tablet (Claritin) 10 mg PO PRN ##0 10/20/11 09/27/23 History cholecalciferol (vitamin D3) 25 3,000 unit PO DAILY 07/25/18 09/27/23 History mcg (1,000 unit) capsule aspirin 81 mg tablet,delayed 81 mg PO DAILY 10/15/21 09/27/23 History release (Adult Low Dose Aspirin) ketotifen fumarate 0.025 % (0.035 1 drp EYE-BOTH 08/02/22 08/24/23 History %) eye drops (Zaditor) multivitamin 1 tab PO DAILY 08/02/22 08/24/23 History irbesartan 300 mg tablet 300 mg PO BEDTIME #90 tabs 04/10/23 09/27/23 Rx simvastatin 5 mg tablet See Rx Instructions .Route 09/04/23 09/27/23 Rx .COMPLEX #90 tabs amlodipine 5 mg tablet 5 mg PO DAILY #90 tabs 09/20/23 09/27/23 Rx Allergies Allergy/AdvReac Type Severity Reaction Status Date / Time Penicillins [PENICILLINS] Allergy Mild Rash Verified 09/27/23 08:18 adhesive [ADHESIVE] AdvReac Mild most tapes Verified 09/27/23 08:18 ok, not sure which one caused a rsh hydromorphone [HYDROMORPHONE] AdvReac Mild iv caused Verified 09/27/23 08:18 n/v metronidazole [METRONIDAZOLE] AdvReac Mild n/v Verified 09/27/23 08:18 Exam Narrative Exam Narrative: Gen-Adult man alert and oriented no acute distress Abdomen-Soft. Right inguinal hernia operative site marked with my initials. Assessment & Plan Assessment and plan (1) Recurrent right inguinal hernia: Status: Acute Assessment & Plan narrative: 78 y.o man with a recurrent right inguinal hernia here for laparoscopic repair. Overview of the operation again discussed in addition to operative risks and benefits. Questions have been answered and he provides his written consent to proceed. Laparoscopic repair of recurrent right inguinal hernia
[2023-09-27] VITALS (8 sets, daily range): BP systolic 99–134; BP diastolic 60–82; PULSE 58–85; RESP 12–19; TEMP 36.2–36.5; O2SAT 95–99; BMI 29.1
[2023-09-27] MEDS: LACTATED RINGERS 1,000 ML 21 ML IV (08:38)
--- NOTE | 2023-09-27 09:40 | PM.OP.1 ---
Operative Date/Time/Diagnoses Date of procedure: 09/27/23 Time of procedure: 09:41 Pre-op diagnosis: Recurrent right inguinal hernia Post-op diagnosis: same Procedure & Clinicians Procedure: Laparoscopic repair of recurrent right inguinal hernia Same procedure as scheduled: Yes Indications: 78-year-old man previous open hernia repair with a recurrent right inguinal hernia here for a laparoscopic repair Surgeon: Benson Magallanes Click Yes if Unassisted: Yes Anesthesia Type: General Operative Notes Findings: Right direct inguinal hernia. Cord lipoma no indirect hernia. Specimen(s): none sent Estimated Blood Loss (mL): 10 Procedure in detail: The patient was brought to the operating room and placed supine on the table. Bilateral sequential compression devices were applied. General anesthesia was induced and they were intubated with an endotracheal tube. A araujo cath was placed in sterile fashion. They received 900g clindaymycin prior to skin incision. They were prepped and draped in sterile fashion. A time out was performed to ensure the correct patient, procedure and necessary equipment within the operating room. The skin was infiltrated with 0.25% bupivicaine. A 1 cm supra umbilical midline incision was made. The fascia was sharply incised and the abdomen entered traumatically. A 10mm balloon port was placed and pneumoperitoneum was established at 15mm Hg. Inspection of the abdomen demonstrated no evidence of injury upon entry. Two 5 mm ports were then placed under direct visualization in the right and left lower quadrant lateral to the rectus muscle. A right direct hernia was observed. The peritoneum 4 cm superior to the deep inguinal ring between the medial umbilical ligament and the anterior superior iliac spine was incised. The medial preperitoneal dissection was carried out into the space of Retzius bluntly, the bladder was swept inferiorly, the pubis and Live's ligament were identified. Next attention was turned towards the lateral aspect of the peritoneal flap. The preperitoneal fat with the testicular vessels was carefully dissected off the inferior peritoneal flap. The cord was carefully inspected there was no evidence of indirect defect. A cord lipoma was observed and was dissected off of the cord structures. The attachements to the direct hernia sac were divided and the direct defect was reduced. A large Bard 3D Max mesh was then placed into the abdomen and positioned such that the myopectineal orifice was completely covered with good overlap on all sides. The peritoneal flap was then repositioned back to its original position and a running V lock suture was used to close the peritoneum such that no bowel could herniate into the preperitoneal space. The area was examined for hemostasis. The 5mm trocars were removed under direct visualization and pneumoperitoneum was deflated through the umbilical trocar, The fascia at the umbilicus was closed with 0-Vicryl in figure of 8 fashion, skin closed with 4-0 Monocyl followed by Dermabond. The sponge and instrument count at the end of the case was correct. Both testicles were entirely within the scrotum at the end of the case. The patient emerged from anesthsia was extubated and transferred to recovery in stable condition. Complications: none Post-operative Condition: stable Disposition: same day surgery
[2023-09-27] MEDS: CLINDAMYCIN 900 MG/50 ML PIGGYBACK 50 MG IV (10:05)
--- NOTE | 2023-09-27 10:30 | SUR.OPER ---
Supine on padded OR bed, head on pillow, arms padded and tucked at sides, legs uncrossed, safety belt at thigh, tape over blanket over lower legs . Gel pad placed between patients posterior upper leg and urinary catheter tubing. Patients glasses placed in his own black glass and placed in patient belongings bag in pre-op area.
[2023-09-27] MEDS: BUPIVACAINE 0.25% (PF) VIAL 30 ML INJ (10:38)
[2023-09-27] MEDS: ACETAMINOPHEN 325 MG TABLET 650 MG PO (11:46)
== END 2023-09-27 12:15 | disposition home or self-care (01) ==
PROVIDERS: Family Provider Orthopaedic Surgery; PCP Family Medicine; Referring Provider Surgery; Visit Provider Surgery
PROC: 0YQ54ZZ Repair Right Inguinal Region, Percutaneous Endoscopic Approach (ICD-10-PCS; CPT 49651; principal; 2023-09-27 09:15)
DX: K40.91 Unilateral inguinal hernia, without obstruction or gangrene, recurrent (principal); D17.6 Benign lipomatous neoplasm of spermatic cord
CPT/HCPCS: 49651; 82962; J1885; J2405; J2704; J3010

== ENCOUNTER → 2024-01-15 13:08 | Outpatient (CLI) | payer MEDICARE, OTHER, SELFPAY ==
--- NOTE | 2024-01-15 13:10 | DI.RAD.S_ITS ---
PROCEDURE: XR FOOT RT MIN 3V INDICATIONS: right heel pain TECHNIQUE: 3 views of the foot were acquired. COMPARISON: None. FINDINGS: Bones: No fractures or dislocations. No suspicious bony lesions. There is a small calcaneal spur. Soft tissues: No tibiotalar joint effusion. Achilles tendon appears normal. IMPRESSION: No acute bony abnormality. Small calcaneal spur. Dictated by: Jackelin Montoya M.D. on 01/15/2024 at 14:21 Approved by: Jackelin Montoya M.D. on 01/15/2024 at 14:21
== END ==
LOC: RAD 13:09
PROVIDERS: Family Provider Orthopaedic Surgery; PCP Family Medicine; Referring Provider Family Medicine; Visit Provider Family Medicine
DX: M79.671 Pain in right foot (principal); M77.31 Calcaneal spur, right foot
CPT/HCPCS: 73630

== ENCOUNTER → 2024-07-24 07:19 | Outpatient (CLI) | payer MEDICARE, OTHER, SELFPAY ==
[2024-07-24 09:08] LABS: Add Manual Diff / Slide Review NO; Basophils Absolute Auto 100 /uL (0-100); Basophils Percent Auto 1.5 % (0-2); Eosinophils Absolute Auto 400 /uL (0-450); Hematocrit 41.3 % (41-53); Hemoglobin 14.1 g/dL (13.5-17.5); Lymphocytes Absolute Auto 1200 /uL (1100-4500); Lymphocytes Percent Auto 30.8 % (25-40); Mean Corpuscular HGB Conc 34.2 % (30-36); Mean Corpuscular Hemoglobin 32.8 PG (26-34); Mean Corpuscular Volume 95.8 fL (80-100); Monocytes Absolute Auto 300 /uL (0-900); Monocytes Percent Auto 8.5 % (3-14); Neutrophils Absolute Auto 1900 /uL (1500-7000); Neutrophils Percent Auto 48.2 % (50-75); Platelet Count 205 X10^3/uL (150-400); Red Blood Cell Count 4.31 X10^6/uL (4.5-5.9); Red Cell Distribution Width 13.7 % (11.6-14.8)
[2024-07-24 09:27] LABS: Alanine Aminotransferase 17 IU/L (<50); Albumin Globulin Ratio 1.7 (1.0-2.8); Alkaline Phosphatase 83 U/L (38-126); Aspartate Aminotransferase 32 IU/L (17-59); BUN Creatinine Ratio 18.6 (6-22); Bilirubin Total 0.9 mg/dL (0.2-1.3); Blood Urea Nitrogen 13 mg/dL (9-20); Calcium 10.1 mg/dL (8.4-10.2); Carbon Dioxide 27 mmol/L (22-32); Chloride 106 mmol/L (98-107); Cholesterol 159 mg/dL (140-199); Estimated Glomerular Filt Rate > 60 mL/min (>60); Globulin 2.3 g/dL (1.7-4.1); Glucose 89 mg/dL (80-110); HDL Cholesterol 67 mg/dL (40-60); HEMOLYSIS < 15 (0-50); LDL Cholesterol Calculated 84 mg/dL (<100); Potassium 4.2 mmol/L (3.4-5.1); Sodium 139 mmol/L (137-145); Total Protein 6.3 g/dL (6.3-8.2); Triglycerides 38 mg/dL (35-150)
[2024-07-24 09:31] LABS: High Sensitivity CRP - Cardiac < 0.3 mg/L (1.0-3.0)
== END ==
PROVIDERS: Family Provider Orthopaedic Surgery; PCP Family Medicine; Referring Provider Family Medicine; Visit Provider Family Medicine
DX: I10 Essential (primary) hypertension (principal); D64.9 Anemia, unspecified; E78.2 Mixed hyperlipidemia
CPT/HCPCS: 36415; 80053; 80061; 85025; 86140

== ENCOUNTER → 2024-09-05 12:29 | Outpatient (CLI) | payer MEDICARE, OTHER, SELFPAY ==
--- NOTE | 2024-09-05 12:32 | DI.RAD.S_ITS ---
P the ROCEDURE: XR FOOT LT 2V INDICATIONS: medial/calcaneal foot pain w/weightbear TECHNIQUE: 2 views of the foot were acquired. COMPARISON: [facility], CR, XR ANKLE LT MIN 3V, 09/05/2024, 12:41. [facility], CR, XR FOOT RT MIN 3V, 01/15/2024, 12:37. FINDINGS: Bones: No fractures or dislocations. No suspicious bony lesions. Plantar calcaneal spur. Ankle ORIF hardware. Soft tissues: No tibiotalar joint effusion. Achilles tendon appears normal. IMPRESSION: No acute bony abnormality. Plantar calcaneal spur. Dictated by: Harry Gan M.D. on 09/05/2024 at 14:05 Approved by: Harry Gan M.D. on 09/05/2024 at 14:08
--- NOTE | 2024-09-05 12:32 | DI.RAD.S_ITS ---
PROCEDURE: XR ANKLE LT MIN 3V INDICATIONS: medial ankle pain 3wk, swell distant hx surgery TECHNIQUE: 3 views of the ankle were acquired. COMPARISON: [facility], , XR FOOT LT 2V, 09/05/2024, 12:41. FINDINGS: Bones: Remote bilateral malleolar ORIF. Hardware at no evidence of hardware failure or loosening. No fractures or dislocations. Ankle mortise is normally aligned. No suspicious bony lesions. Soft tissues: Positive tibiotalar joint effusion. Achilles tendon appears normal. IMPRESSION: Intact orthopedic surgical hardware. No acute bony abnormality. Plantar calcaneal spur. Joint effusion. Dictated by: Harry Gan M.D. on 09/05/2024 at 14:08 Approved by: Harry Gan M.D. on 09/05/2024 at 14:09
== END ==
PROVIDERS: Family Provider Orthopaedic Surgery; PCP Family Medicine; Referring Provider Student in an Organized Health Care Education/Training Program; Visit Provider Student in an Organized Health Care Education/Training Program
DX: M77.32 Calcaneal spur, left foot (principal); M79.672 Pain in left foot; M25.473 Effusion, unspecified ankle; M25.572 Pain in left ankle and joints of left foot; M25.472 Effusion, left ankle
CPT/HCPCS: 73610; 73620

== ENCOUNTER 2024-09-12 10:52 | Emergency (ER) | payer MEDICARE, OTHER, SELFPAY ==
[2024-09-12] VITALS (15 sets, daily range): BP systolic 152–180; BP diastolic 68–80; PULSE 59–77; RESP 14–24; TEMP 37.1; O2SAT 95–99; BMI 29.1
--- NOTE | 2024-09-12 | DI.RAD.S_ITS ---
PROCEDURE: XR CHEST 1V INDICATIONS: POSSIBLE STROKE TECHNIQUE: One view of the chest was acquired. COMPARISON: [facility], , CHEST 2 VIEW, 11/09/2015, 11:27. FINDINGS: Surgical changes and devices: None. Lungs and pleura: Lungs are clear. No pleural effusions or pneumothorax. Mediastinum: Mediastinal contours appear normal. Heart size is normal. Bones and chest wall: No suspicious bony lesions. Overlying soft tissues appear unremarkable. IMPRESSION: No acute cardiopulmonary abnormality is seen. No sign of aspiration. Dictated by: Mingo Edwards M.D. on 09/12/2024 at 11:42 Approved by: Mingo Edwards M.D. on 09/12/2024 at 11:42
--- NOTE | 2024-09-12 11:10 | DI.CT.S_ITS ---
PROCEDURE: CT STROKE INDICATIONS: stroke TECHNIQUE: Noncontrast 4.5 mm thick angled axial sections acquired from the foramen magnum to the vertex, with coronal reformats. For radiation dose reduction, the following was used: automated exposure control, adjustment of mA and/or kV according to patient size. COMPARISON: [facility], CT, CT ANGIO HEAD AND NECK, 10/27/2021, 12:48. FINDINGS: Image quality: Diagnostic CSF spaces: Basal cisterns are patent. Lateral ventricles are symmetric. Volume: Vascular calcifications. Periventricular white matter disease is commonly seen with chronic microangiopathy. Volume loss is present. These findings are [id number] Brain: No acute hemorrhage. No gross loss of jacobs-white differentiation. Craniofacial structures: No displaced fracture. Sinuses are clear. Orbits are intact. IMPRESSION: No acute intracranial pathology by CT. Consider MRI if there is further concern for infarct Discussed with Dr. Ca at time of report finalize a ferguson. This study fulfills neurological imaging criteria for inclusion or exclusion of acute stroke therapies based on available published neurological imaging guidelines. Dictated by: Parviz Esqueda M.D. on 09/12/2024 at 11:20 Approved by: Parviz Esqueda M.D. on 09/12/2024 at 11:22
--- NOTE | 2024-09-12 11:10 | EKG_ITS ---
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
--- NOTE | 2024-09-12 11:11 | ED.GENADULT ---
HPI - General Adult General Chief complaint: Neuro Symptoms/Deficit Stated complaint: confussion, poss stroke Time Seen by Provider: 09/12/24 11:09 History of Present Illness HPI narrative: 79-year-old gentleman with a history of hypertension hyperlipidemia was last seen normal at 830 this morning was talking with his . She came home around 10:00 a.m. this morning and found him significantly confused, some word-finding difficulty, acute memory issues does not remember [place] yesterday. No motor symptoms and no complaints of paresthesias. Brings him into the ER for further evaluation. Related Data Home Medications Medication Instructions Recorded Confirmed loratadine 10 mg tablet (Claritin) 10 mg PO PRN ##0 10/20/11 09/05/24 aspirin 81 mg tablet,delayed 81 mg PO DAILY 10/15/21 09/05/24 release (Adult Low Dose Aspirin) multivitamin 1 tab PO DAILY 08/02/22 07/23/24 cholecalciferol (vitamin D3) 25 1,000 unit PO DAILY 03/25/24 07/23/24 mcg (1,000 unit) capsule ketotifen fumarate 0.025 % (0.035 1 drp EYE-BOTH PRN 03/25/24 07/23/24 %) eye drops (Zaditor) Previous Rx's Medication Instructions Recorded acetaminophen 325 mg capsule 650 mg (2 x 325 mg) PO QID PRN 09/27/23 (Tylenol) pain #60 caps benzonatate 200 mg capsule 200 mg PO BID PRN cough #30 caps 03/24/24 amlodipine 5 mg tablet 5 mg PO DAILY #90 tabs 07/23/24 irbesartan 300 mg tablet 300 mg PO BEDTIME #90 tabs 07/23/24 simvastatin 5 mg tablet See Rx Instructions .Route 07/23/24 .COMPLEX #90 tabs Allergies Allergy/AdvReac Type Severity Reaction Status Date / Time adhesive [ADHESIVE] AdvReac Mild most tapes Verified 09/12/24 11:09 ok, not sure which one caused a rsh hydromorphone [HYDROMORPHONE] AdvReac Mild iv caused Verified 09/12/24 11:09 n/v metronidazole [METRONIDAZOLE] AdvReac Mild n/v Verified 09/12/24 11:09 Review of Systems Review of Systems Narrative: Pertinent positive and negative findings as per HPI Patient History Medical History NSVT (nonsustained ventricular tachycardia) Sinus bradycardia Pulsatile tinnitus of both ears Sweating increase Environmental allergies 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 (~11/12/20) Osteoarthritis involving multiple joints on both sides of body Basal cell carcinoma of lower leg Seborrheic keratosis 1st degree AV block Bradycardia Impotence of organic origin Prostate nodule Hyperlipidemia, unspecified Overweight (BMI 25.0-29.9) (~2019) Obesity (BMI 30.0-34.9) Depression Vitamin D deficiency Hearing loss Prediabetes Hyperthyroidism Genital warts Dandruff 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) Diverticulosis of large intestine without hemorrhage (11/25/15) Internal hemorrhoids (11/25/15) Hyperparathyroidism (05/29/15) Hypercalcemia (03/18/15) 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) Hypertension Surgical History Hx of right inguinal hernia repair (2013) History of angioplasty (10/09/20) History of orthopedic surgery (07/1998) Status post blepharoplasty of both eyes (10/27/09) History of cataract removal with insertion of prosthetic lens Status post laminectomy (05/17/11) Status post hernia repair (01/17/14) History of hip replacement (02/19/13) History of knee replacement (12/11/14) History of knee replacement (12/13/11) Family History Father Alcoholism Mother FH: ovarian cancer Malignant neoplasm of esophagus, unspecified location Alcoholism Sister Age: 79 History of breast cancer Osteoarthritis of spine, unspecified spinal osteoarthritis complication status, unspecified spinal region Grandfather Alcoholism Liver disease Grandmother No problems noted. Family/Other Liver cancer Social History household members: spouse Smoking Status: Never smoker alcohol intake: current Smoking Status: Never smoker alcohol intake frequency: a few times a week Exam Initial Vital Signs Initial Vital Signs: Vital Signs Temperature 98.7 F 09/12/24 11:03 Pulse Rate 71 09/12/24 11:03 Respiratory Rate 14 09/12/24 11:03 Blood Pressure 180/80 H 09/12/24 11:03 Pulse Oximetry 98 09/12/24 11:03 Oxygen Delivery Method Room Air 09/12/24 11:03 General: Healthy appearing, in no acute distress. Well-nourished well-developed HEENT: Moist mucous membranes, normal sclera with reactive pupils, Neck: No JVD, supple Respiratory: Lungs are clear to auscultation, no wheezing no rales no rhonchi. Full and symmetrical air movement Cardiac: Regular rate and rhythm no murmurs no bruits Abdomen: Soft, nontender, good bowel tones, no flank pain Skin: Warm and dry, no rashes Neurologic: Grossly neurologically intact with no obvious asymmetries or abnormalities, patient is alert to person time and place, no receptive or expressive aphasia. NIH score is 0 Extremities: No trauma, well perfused Psych: Cooperative, Course Orders Ordered: ED Orders 09/12/24 11:05 Complete Blood Count AUTO DIFF Stat Comprehensive Metabolic Panel Stat Ethanol (ETOH) Stat PTT Partial Thromboplastin Amadeo Stat Prothrombin Time INR Stat Troponin & CK Cardiac Panel Stat 09/12/24 11:10 CT Stroke Stat EKG-12 Lead Stat 09/12/24 11:17 CT angio head and neck Stat 09/12/24 11:30 COVID19 -Nasal RAPID Stat 09/12/24 12:19 Urinalysis and Microscopic Stat Urine Drug Screen, Rapid Stat Vital Signs Vital signs: Vital Signs - 8 hr 09/12/24 11:03 09/12/24 11:20 09/12/24 11:35 Temperature 98.7 F Pulse Rate 71 77 75 Respiratory Rate 14 18 16 Blood Pressure 180/80 H 162/68 H 172/74 H Pulse Oximetry 98 99 98 Oxygen Delivery Method Room Air 09/12/24 12:00 09/12/24 12:30 09/12/24 13:00 Temperature Pulse Rate 66 66 70 Respiratory Rate 18 16 18 Blood Pressure 152/72 H 156/72 H 158/77 H Pulse Oximetry 97 99 99 Oxygen Delivery Method 09/12/24 13:22 09/12/24 13:24 09/12/24 13:24 Temperature Pulse Rate 66 72 Respiratory Rate 18 20 Blood Pressure 158/77 H Pulse Oximetry 97 98 Oxygen Delivery Method 09/12/24 13:30 09/12/24 13:30 09/12/24 13:32 Temperature Pulse Rate 72 69 Respiratory Rate 17 18 Blood Pressure 177/80 H 177/80 H Pulse Oximetry 99 98 Oxygen Delivery Method Room Air 09/12/24 14:00 09/12/24 14:00 09/12/24 14:30 Temperature Pulse Rate 66 Respiratory Rate 17 Blood Pressure 152/71 H 162/73 H Pulse Oximetry 98 Oxygen Delivery Method 09/12/24 14:30 Temperature Pulse Rate 71 Respiratory Rate 20 Blood Pressure Pulse Oximetry 98 Oxygen Delivery Method Medical Decision Making Lab Data 09/12/24 11:05 09/12/24 11:05 Labs: Lab Results 09/12/24 09/12/24 09/12/24 Range/Units 11:05 11:30 12:19 WBC 7.1 (4.5-11.0) X10^3/uL RBC 4.54 (4.5-5.9) X10^6/uL Hgb 14.8 (13.5-17.5) g/dL Hct 43.3 (41-53) % MCV 95.4 (80-100) fL MCH 32.5 (26-34) PG MCHC 34.1 (30-36) % RDW 13.9 (11.6-14.8) % Plt Count 234 (150-400) X10^3/uL Neut % (Auto) 58.4 (50-75) % Lymph % (Auto) 26.3 (25-40) % [place] % (Auto) 7.9 (3-14) % Eos % (Auto) 6.6 H (2-4) % Baso % (Auto) 0.8 (0-2) % Neut # (Auto) 4100 (0124-9759) /uL Lymph # (Auto) 1900 (9528-1761) /uL [place] # (Auto) 600 (0-900) /uL Eos # (Auto) 500 H (0-450) /uL Baso # (Auto) 100 (0-100) /uL PT 10.8 (9.4-12.5) SECONDS INR 1.0 (0.9-1.3) APTT 32 (25.1-36.5) SECONDS Sodium 141 (137-145) mmol/L Potassium 3.7 (3.4-5.1) mmol/L Chloride 107 (98-107) mmol/L Carbon Dioxide 28 (22-32) mmol/L BUN 14 (9-20) mg/dL Creatinine 0.80 (0.66-1.25) mg/dL Estimated GFR > 60 (>60) mL/min BUN/Creatinine Ratio 17.5 (6-22) Glucose 104 (80-110) mg/dL Calcium 10.2 (8.4-10.2) mg/dL Total Bilirubin 0.7 (0.2-1.3) mg/dL AST 35 (17-59) IU/L ALT 21 (<50) IU/L Alkaline Phosphatase 109 (38-126) U/L Total Creatine Kinase 61 (55-170) U/L Troponin I < 0.012 (0.01-0.034) ng/mL Total Protein 7.2 (6.3-8.2) g/dL Albumin 4.4 (3.5-5.0) g/dL Globulin 2.8 (1.7-4.1) g/dL Albumin/Globulin Ratio 1.6 (1.0-2.8) Urine Color Yellow Urine Appearance Clear Urine pH 7.0 (4.5-8.0) Ur Specific [place] 1.010 (1.000-1.035) Urine Protein Negative (Negative) Urine Glucose (UA) Negative (Negative) g/dL Urine Ketones Negative (NEGATIVE) Urine Occult Blood Negative (Negative) Urine Nitrate Negative (Negative) Urine Bilirubin Negative (NEGATIVE) Urine Urobilinogen 0.2 (0.2) E.U./dL Ur Leukocyte Esterase Negative (NEGATIVE) Urine RBC None seen (0-5/HPF) Urine WBC 1-5/hpf (0-5/HPF) Ur Squamous Epith Cells None seen (0-5/HPF) Amorphous Sediment 1+ Urine Bacteria Occasional (0-1) (None) Ur Culture Indicated? Cult not indicated Vol Urine Centrifuged 10ml (spun) U Opiates 300ng/mL cut Negative (Negative) Ur Oxycodone Screen Negative (Negative) Urine Methadone Screen Negative (Negative) Ur Barbiturates Screen Negative (Negative) U Tricyclic Antidepress Negative (Negative) Ur Phencyclidine Scrn Negative (Negative) Ur Amphetamines Screen Negative (Negative) U Methamphetamines Scrn Negative (Negative) Ur MDMA Scrn (Ecstasy) Negative (Negative) U Benzodiazepines Scrn Negative (Negative) Urine Cocaine Screen Negative (Negative) U Marijuana (THC) Screen Negative (Negative) Urine Specific [place] (Normal) Ethyl Alcohol < 10 ( - 10) mg/dL Ur Creatinine (Normal) SARS-CoV-2 (PCR) Negative (Negative) 09/12/24 Range/Units 12:19 WBC (4.5-11.0) X10^3/uL RBC (4.5-5.9) X10^6/uL Hgb (13.5-17.5) g/dL Hct (41-53) % MCV (80-100) fL MCH (26-34) PG MCHC (30-36) % RDW (11.6-14.8) % Plt Count (150-400) X10^3/uL Neut % (Auto) (50-75) % Lymph % (Auto) (25-40) % [place] % (Auto) (3-14) % Eos % (Auto) (2-4) % Baso % (Auto) (0-2) % Neut # (Auto) (4812-8783) /uL Lymph # (Auto) (2471-1839) /uL [place] # (Auto) (0-900) /uL Eos # (Auto) (0-450) /uL Baso # (Auto) (0-100) /uL PT (9.4-12.5) SECONDS INR (0.9-1.3) APTT (25.1-36.5) SECONDS Sodium (137-145) mmol/L Potassium (3.4-5.1) mmol/L Chloride (98-107) mmol/L Carbon Dioxide (22-32) mmol/L BUN (9-20) mg/dL Creatinine (0.66-1.25) mg/dL Estimated GFR (>60) mL/min BUN/Creatinine Ratio (6-22) Glucose (80-110) mg/dL Calcium (8.4-10.2) mg/dL Total Bilirubin (0.2-1.3) mg/dL AST (17-59) IU/L ALT (<50) IU/L Alkaline Phosphatase (38-126) U/L Total Creatine Kinase (55-170) U/L Troponin I (0.01-0.034) ng/mL Total Protein (6.3-8.2) g/dL Albumin (3.5-5.0) g/dL Globulin (1.7-4.1) g/dL Albumin/Globulin Ratio (1.0-2.8) Urine Color Urine Appearance Urine pH Normal (4.5-8.0) Ur Specific [place] (1.000-1.035) Urine Protein (Negative) Urine Glucose (UA) (Negative) g/dL Urine Ketones (NEGATIVE) Urine Occult Blood (Negative) Urine Nitrate (Negative) Urine Bilirubin (NEGATIVE) Urine Urobilinogen (0.2) E.U./dL Ur Leukocyte Esterase (NEGATIVE) Urine RBC (0-5/HPF) Urine WBC (0-5/HPF) Ur Squamous Epith Cells (0-5/HPF) Amorphous Sediment Urine Bacteria (None) Ur Culture Indicated? Vol Urine Centrifuged U Opiates 300ng/mL cut (Negative) Ur Oxycodone Screen (Negative) Urine Methadone Screen (Negative) Ur Barbiturates Screen (Negative) U Tricyclic Antidepress (Negative) Ur Phencyclidine Scrn (Negative) Ur Amphetamines Screen (Negative) U Methamphetamines Scrn (Negative) Ur MDMA Scrn (Ecstasy) (Negative) U Benzodiazepines Scrn (Negative) Urine Cocaine Screen (Negative) U Marijuana (THC) Screen (Negative) Urine Specific [place] Normal (Normal) Ethyl Alcohol ( - 10) mg/dL Ur Creatinine Normal (Normal) SARS-CoV-2 (PCR) (Negative) Point of Care Testing Glucose POC 105 Point of care testing: Point of Care Testing Glucose POC [address] angio head and neck: Radiologist's Impression: PROCEDURE: CT ANGIO HEAD AND NECK INDICATIONS: stroke TECHNIQUE: After the administration of intravenous contrast, 1 mm thick sections acquired from the aortic arch through the [place]. 3-dimensional umkhacd-vjvbebtbi-ocqetuhqew (MIP) and/or volume rendering reformats were acquired of the central intracranial vasculature and neck separately. For radiation dose reduction, the following was used: automated exposure control, adjustment of mA and/or kV according to patient size. COMPARISON: [facility], CT, CT ANGIO HEAD AND NECK, 10/27/2021, 12:48. 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 Mild left cavernous and supraclinoid atherosclerotic calcifications. ACAs: Supplied from the left circulation, patent MCAs: The left MCA is patent. Diminutive flow is again seen in the right MCA territory, mostly through collaterals AComm: No aneurysm Venous sinuses: No occlusive thrombus where visualized Posterior circulation: Dominance: Equal Vertebral arteries: Mild intracranial calcifications Basilar artery: Patent PComms: No aneurysm esol teacher assistant: Patent NECK ANGIOGRAPHY: Aortic arch and subclavian arteries: Mild calcifications CCAs: No stenosis, occlusion, or aneurysm. ICA origins (by NASCET criteria): Kari-si-lakilsbe calcifications seen on the right, with significant hypoplasia of the right cervical ICA. Moderate calcifications seen on the left, about 50-70% narrowing ICAs: No stenosis, occlusion or aneurysm. ECAs: Significant narrowing is seen at the left origin Vertebral arteries: Patent Soft tissues: No significant mass, aneurysm, or lymphadenopathy Lung apices: No pneumothorax Bones: Degenerative changes are present. There is reversal of the normal cervical lordosis. IMPRESSION: Significantly diminutive right ICA starting from the cervical segment. 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 As before, diminished flow is seen in the right MCA territory, mostly through collaterals. No large vessel occlusion on the left side. 50-70% narrowing at the left ICA origin. There is also significant narrowing at the left ECA origin. If there is high concern for infarct, consider MRI. Dictated by: Parviz Esqueda M.D. 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 No indication of prior stroke or TIA Differential considered: Stroke, TIA, transient global amnesia, acute electrolyte abnormality, infection Exam documented above, pertinent findings include: Exam is remarkably benign. NIH score is 0. Patient seems to be getting back to baseline in terms of his cognitive function Lab Test results independently reviewed as above. Pertinent findings: CBC is unremarkable Chemistries are reviewed Troponin is undetectable Tox screen is negative Independently reviewed EKG: Sinus rhythm at a rate of 66, no acute ischemic change Imaging studies independently reviewed: CT scan of the head is unremarkable CT angiogram shows some chronic changes none emergent and no large vessel occlusions Consultations: 245 pm Workup is complete, symptoms have completely resolved. Given his abnormalities on CT angiogram consult to stroke Neurology is made Dr Mendoza, stroke neurologist reviewed angiogram did not have additional recommendations for care at this time felt discharge home was safe Discussion: 79-year-old gentleman with 2-3 hours of slight confusion, no dysarthria no other neurologic symptoms. Workup is unremarkable. CT angiogram of the head and neck shows chronic changes with diminished blood flow seen in the right MCA territory which has been noted previously 50-70% narrowing of the left internal carotid origin and significant narrowing at the left OCA origin all of these findings seemed to be nonacute. With the patient's otherwise unremarkable workup, essentially baseline neurologic finding he is going to be safe for discharge home I am not going to make any recommendations for medication changes. Possibility of transient global amnesia is considered however his period of amnestic events seems shorter that I have typically seen with this. Findings are reviewed with the patient as , questions are answered, there was no indication for additional imaging or hospitalization at this time and he is safe for discharge Discharge Plan Departure Patient Disposition: Home Clinical Impression: Acute alteration in mental status Instructions: DI for Transient Ischemic Attack Activity Restrictions/Additional Instructions: Thank you for coming in today I am glad that you are basically back to normal. I do not have a full explanation for the couple of hours of significant confusion. There was no sign of metabolic abnormalities, infection, bleeding in your head, acute stroke, tumors or masses. There is a phenomena called transient global amnesia where people have transient episodes of significant confusion that resolved completely. There was no treatment required for this. I did review your CT scan and the CT angiogram, the study looking all of the blood vessels in your brain, with our stroke specialist of the [facility]. You do have some chronic findings with your blood vessels but nothing that is new or should be explaining your recent symptoms. Please do continue all of your usual medications. If you find that you are getting worse or develop any new symptoms, please feel free to return to the emergency department for further evaluation. Prescriptions: No Action benzonatate 200 mg capsule 200 mg PO BID PRN (Reason: cough) Qty: 30 0RF loratadine [Claritin] 10 MG tablet 10 mg PO PRN Qty: 0 aspirin [Adult Low Dose Aspirin] 81 mg tablet,delayed release (DR/EC) 81 mg PO DAILY cholecalciferol (vitamin D3) 25 mcg (1,000 unit) capsule 1,000 unit PO DAILY multivitamin Tablet 1 tab PO DAILY ketotifen fumarate [Zaditor] 0.025 % (0.035 %) drops 1 drp EYE-BOTH PRN amlodipine 5 mg tablet 5 mg PO DAILY Qty: 90 1RF Rx Instructions: STOP TAKING AMLODIPINE 10MG WHILE TAKING THIS MEDICATION. MONITOR BP. IF >140/90 CONSISTENTLY THEN RETURN TO 10MG DOSE. irbesartan 300 mg tablet 300 mg PO BEDTIME Qty: 90 1RF simvastatin 5 mg tablet See Rx Instructions .ROUTE .COMPLEX Qty: 90 1RF Dose Instruction: TAKE ONE TABLET BY MOUTH AT BEDTIME Rx Instructions: TAKE ONE TABLET BY MOUTH AT BEDTIME acetaminophen [Tylenol] 325 mg capsule 650 mg PO QID PRN (Reason: pain) Qty: 60 0RF Referrals: Adenike Chandra DO [Primary Care Provider] - Stand Alone Forms: Patient Portal/API/Survey
--- NOTE | 2024-09-12 11:17 | DI.CT.S_ITS ---
PROCEDURE: CT ANGIO HEAD AND NECK INDICATIONS: stroke TECHNIQUE: After the administration of intravenous contrast, 1 mm thick sections acquired from the aortic arch through the [place]. 3-dimensional whnufgh-gzrhjuymm-wisnlpyktt (MIP) and/or volume rendering reformats were acquired of the central intracranial vasculature and neck separately. For radiation dose reduction, the following was used: automated exposure control, adjustment of mA and/or kV according to patient size. COMPARISON: [facility], CT, CT ANGIO HEAD AND NECK, 10/27/2021, 12:48. 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 Mild left cavernous and supraclinoid atherosclerotic calcifications. ACAs: Supplied from the left circulation, patent MCAs: The left MCA is patent. Diminutive flow is again seen in the right MCA territory, mostly through collaterals AComm: No aneurysm Venous sinuses: No occlusive thrombus where visualized Posterior circulation: Dominance: Equal Vertebral arteries: Mild intracranial calcifications Basilar artery: Patent PComms: No aneurysm semiconductor processing group leader: Patent NECK ANGIOGRAPHY: Aortic arch and subclavian arteries: Mild calcifications CCAs: No stenosis, occlusion, or aneurysm. ICA origins (by NASCET criteria): [id number] calcifications seen on the right, with significant hypoplasia of the right cervical ICA. Moderate calcifications seen on the left, about 50-70% narrowing ICAs: No stenosis, occlusion or aneurysm. ECAs: Significant narrowing is seen at the left origin Vertebral arteries: Patent Soft tissues: No significant mass, aneurysm, or lymphadenopathy Lung apices: No pneumothorax Bones: Degenerative changes are present. There is reversal of the normal cervical lordosis. IMPRESSION: Significantly diminutive right ICA starting from the cervical segment. 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 As before, diminished flow is seen in the right MCA territory, mostly through collaterals. No large vessel occlusion on the left side. 50-70% narrowing at the left ICA origin. There is also significant narrowing at the left ECA origin. If there is high concern for infarct, consider MRI. Dictated by: Parviz Esqueda M.D. on 09/12/2024 at 11:30 Approved by: Parviz Esqueda M.D. on 09/12/2024 at 11:37
[2024-09-12 11:25] LABS: Add Manual Diff / Slide Review NO; Basophils Absolute Auto 100 /uL (0-100); Basophils Percent Auto 0.8 % (0-2); Eosinophils Absolute Auto 500 /uL (0-450); Eosinophils Percent Auto 6.6 % (2-4); Hematocrit 43.3 % (41-53); Hemoglobin 14.8 g/dL (13.5-17.5); Lymphocytes Absolute Auto 1900 /uL (1100-4500); Lymphocytes Percent Auto 26.3 % (25-40); Mean Corpuscular HGB Conc 34.1 % (30-36); Mean Corpuscular Hemoglobin 32.5 PG (26-34); Mean Corpuscular Volume 95.4 fL (80-100); Monocytes Absolute Auto 600 /uL (0-900); Monocytes Percent Auto 7.9 % (3-14); Neutrophils Absolute Auto 4100 /uL (1500-7000); Neutrophils Percent Auto 58.4 % (50-75); Platelet Count 234 X10^3/uL (150-400); Red Blood Cell Count 4.54 X10^6/uL (4.5-5.9); Red Cell Distribution Width 13.9 % (11.6-14.8); White Blood Cell Count 7.1 X10^3/uL (4.5-11.0)
[2024-09-12 11:32] LABS: Prothrombin Time 10.8 SECONDS (9.4-12.5)
[2024-09-12 11:35] LABS: PTT Partial Thromboplastin Tim 32 SECONDS (25.1-36.5)
[2024-09-12 11:42] LABS: Alanine Aminotransferase 21 IU/L (<50); Albumin 4.4 g/dL (3.5-5.0); Albumin Globulin Ratio 1.6 (1.0-2.8); Alkaline Phosphatase 109 U/L (38-126); Aspartate Aminotransferase 35 IU/L (17-59); BUN Creatinine Ratio 17.5 (6-22); Bilirubin Total 0.7 mg/dL (0.2-1.3); Blood Urea Nitrogen 14 mg/dL (9-20); Calcium 10.2 mg/dL (8.4-10.2); Carbon Dioxide 28 mmol/L (22-32); Chloride 107 mmol/L (98-107); Creatine Kinase 61 U/L (55-170); Estimated Glomerular Filt Rate > 60 mL/min (>60); Ethanol (ETOH) < 10 mg/dL; Globulin 2.8 g/dL (1.7-4.1); Glucose 104 mg/dL (80-110); HEMOLYSIS < 15 (0-50); Potassium 3.7 mmol/L (3.4-5.1); Sodium 141 mmol/L (137-145); Total Protein 7.2 g/dL (6.3-8.2)
[2024-09-12 11:53] LABS: Troponin I < 0.012 ng/mL (0.01-0.034)
[2024-09-12 12:11] LABS: COVID19 -Nasal RAPID Negative (Negative)
[2024-09-12 12:27] LABS: Appearance Urine UA CLEAR; Bilirubin Urine UA NEGATIVE (NEGATIVE); Color Urine UA YELLOW; Glucose Urine UA NEGATIVE (Negative); Ketones Urine UA NEGATIVE (NEGATIVE); Leukocyte Esterase Urine UA NEGATIVE (NEGATIVE); Nitrite Urine UA NEGATIVE (Negative); Occult Blood Urine UA NEGATIVE (Negative); Protein Urine UA NEGATIVE (Negative); Urobilinogen Urine UA 0.2 E.U./dL (0.2)
[2024-09-12 12:35] LABS: Ur Creatinine Normal (Normal); Ur Specific Gravity Normal (Normal); Urine Amphetamines Negative (Negative); Urine Barbiturates Negative (Negative); Urine Benzodiazepines Negative (Negative); Urine Cocaine Negative (Negative); Urine MDMA Negative (Negative); Urine Methadone Negative (Negative); Urine Methamphetamines Negative (Negative); Urine Opiates Negative (Negative); Urine Oxycodone Negative (Negative); Urine Phencyclidine Negative (Negative); Urine THC Negative (Negative); Urine Tricyclic Antidepressant Negative (Negative); Urine pH Normal (Normal)
[2024-09-12 12:42] LABS: Bacteria Urine Occasional (0-1); RBC Urine None Seen (0-5/HPF); Squamous Epithelial Cell Urine None Seen (0-5/HPF); Urine Volume 10mL (spun); WBC Urine 1-5/HPF (0-5/HPF)
[2024-09-12 12:43] LABS: Amorphous Sediment Urine 1+; Culture Indicated Urine Cult Not Indicated
== END 2024-09-12 16:01 | disposition home or self-care (01) ==
PROVIDERS: Emergency Provider Emergency Medicine; Family Provider Orthopaedic Surgery; PCP Family Medicine
DX: R41.82 Altered mental status, unspecified (principal); I10 Essential (primary) hypertension; E78.5 Hyperlipidemia, unspecified; R07.9 Chest pain, unspecified; Z11.52 Encounter for screening for COVID-19
CPT/HCPCS: 36415; 70450; 70496; 70498; 71045; 80053; 80305; 80320; 81001; 82550; 82962; 84484; 85025; 85610; 85730; 87635; 93005; 99285; Q9967

== ENCOUNTER 2025-04-03 07:08 | Emergency (ER) | payer MEDICARE, OTHER, SELFPAY ==
[2025-04-03] VITALS (23 sets, daily range): BP systolic 107–142; BP diastolic 56–75; PULSE 60–110; RESP 12–24; TEMP 36.7; O2SAT 96–99; BMI 28.3
--- NOTE | 2025-04-03 07:35 | ED.GIBLEED ---
HPI - GI Bleed General Chief complaint: Urogenital-Male Stated complaint: Bloody stool this morning , Now just bloody Time Seen by Provider: 04/03/25 07:26 Source: patient Mode of arrival: Ambulatory History of Present Illness HPI Narrative: Patient here with . Has had 2 episodes of bright red blood per rectum this morning. Denies denies abdominal pain no back pain no chest pain. No dizziness. No previous episodes of GI bleed. Does have history of diverticulosis. Patient is not on any blood thinners. Again patient denies abdominal pain no back pain. Patient did have colonoscopy 2015 and diagnosed with diverticulosis. No prior history of diverticulitis. Patient in no distress. Has history of hemorrhoids. Related Data Home Medications ?Medication ?Instructions ?Recorded ?Confirmed loratadine 10 mg tablet (Claritin) 10 mg PO PRN ##0 10/20/11 04/10/25 aspirin 81 mg tablet,delayed 81 mg PO DAILY 10/15/21 04/10/25 release (Adult Low Dose Aspirin) Held on 04/08/25. Instructions: For Provider review given recent GI bleed multivitamin 1 tab PO DAILY 08/02/22 04/10/25 cholecalciferol (vitamin D3) 25 1,000 unit PO DAILY 03/25/24 04/10/25 mcg (1,000 unit) capsule ketotifen fumarate 0.025 % (0.035 1 drp EYE-BOTH PRN 03/25/24 04/10/25 %) eye drops (Zaditor) Previous Rx's ?Medication ?Instructions ?Recorded acetaminophen 325 mg capsule 650 mg (2 x 325 mg) PO QID PRN 09/27/23 (Tylenol) pain #60 caps amlodipine 5 mg tablet 5 mg PO DAILY #90 tabs 01/22/25 irbesartan 300 mg tablet 300 mg PO BEDTIME #90 tabs 01/22/25 simvastatin 5 mg tablet See Rx Instructions .Route 01/22/25 .COMPLEX #90 tabs Allergies Allergy/AdvReac Type Severity Reaction Status Date / Time adhesive (ADHESIVE) AdvReac Mild most tapes Verified 04/10/25 16:24 ok, not sure which one caused a rsh hydromorphone (HYDROMORPHONE) AdvReac Mild iv caused Verified 04/10/25 16:24 n/v metronidazole (METRONIDAZOLE) AdvReac Mild n/v Verified 04/10/25 16:24 Review of Systems Review of Systems Narrative: GENERAL: Negative chills, fatigue, malaise, fever, sweats. HEENT: Negative sinus pain, ear pain, sore throat RESPIRATORY: Negative dyspnea, cough CARDIOVASCULAR: Negative chest pain, palpitations GASTROINTESTINAL: Negative vomiting, nausea, abdominal pain, positive bloody stool : Negative dysuria, frequency, hematuria MUSCULOSKELETAL: Negative muscle or bony pain SKIN: Negative rash, skin lesions NEUROLOGIC: Negative weakness, numbness ROS Unobtainable: All systems reviewed & are unremarkable except as noted in HPI and below Patient History Medical History (Updated 04/10/25 @ 17:12 by Adenike Chandra DO) Acute lower GI bleeding (~03/2025) Transient global amnesia (~09/12/24) NSVT (nonsustained ventricular tachycardia) Sinus bradycardia Pulsatile tinnitus of both ears Environmental allergies 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 (~11/12/20) Osteoarthritis involving multiple joints on both sides of body Basal cell carcinoma of lower leg Seborrheic keratosis 1st degree AV block Bradycardia Impotence of organic origin Prostate nodule Hyperlipidemia, unspecified Overweight (BMI 25.0-29.9) (~2019) Obesity (BMI 30.0-34.9) Depression Vitamin D deficiency Hearing loss Prediabetes Hyperthyroidism Genital warts Dandruff 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) Diverticulosis of large intestine without hemorrhage (11/25/15) Internal hemorrhoids (11/25/15) Hyperparathyroidism (05/29/15) Hypercalcemia (03/18/15) 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) Hypertension Surgical History Hx of right inguinal hernia repair (2013) History of angioplasty (10/09/20) History of orthopedic surgery (07/1998) Status post blepharoplasty of both eyes (10/27/09) History of cataract removal with insertion of prosthetic lens Status post laminectomy (05/17/11) Status post hernia repair (01/17/14) History of hip replacement (02/19/13) History of knee replacement (12/11/14) History of knee replacement (12/13/11) Family History Father Alcoholism Mother FH: ovarian cancer Malignant neoplasm of esophagus, unspecified location Alcoholism Sister Age: 79 History of breast cancer Osteoarthritis of spine, unspecified spinal osteoarthritis complication status, unspecified spinal region Grandfather Alcoholism Liver disease Grandmother No problems noted. Family/Other Liver cancer Social History household members: spouse Smoking Status: Never smoker alcohol intake: current Smoking Status: Never smoker alcohol intake frequency: a few times a week Exam Narrative Exam Narrative: GENERAL: in no distress, not toxic not dyspneic HEAD: Normocephalic. EYES: Pupils equal round pink conjunctiva ENT: Mucous membranes moist. NECK: Trachea midline. CARDIOVASCULAR: Regular rate and rhythm RESPIRATORY: Clear to auscultation. Breath sounds equal bilaterally. No wheezes, rales, or rhonchi. GASTROINTESTINAL: Abdomen soft, non-tender, abdomen is soft flat nontender no peritoneal signs no guarding or rebound. No bruit. No bounding pulsatile mass, rectal exam does show crusted blood around the anus. No hematochezia at this time. Hemoccult positive. No covering of bright red blood or black stools on the glove. EXTREMITIES: No gross deformities. BACK: No flank tenderness. NEURO: AOx4. Clear speech SKIN: Warm and dry PSYCH: Not anxious, is cooperative Initial Vital Signs Initial Vital Signs: Vital Signs Pulse Rate 70 04/03/25 07:15 Pulse Oximetry 97 04/03/25 07:15 Course Orders Ordered: Discontinued Medications Sodium Chloride (Normal Saline 0.9%) 500 mls @ 1,000 mls/hr IV BOLUS ONE Stop: 04/03/25 08:03 Last Infusion: 04/03/25 11:00 Dose: Infused Documented By: Admin: 04/03/25 08:27 Dose: 1,000 mls/hr Documented By: STEFFANY Sodium Chloride (Normal Saline 0.9%) 1,000 mls @ 1,000 mls/hr IV BOLUS ONE Stop: 04/03/25 11:56 Last Admin: 04/03/25 11:08 Dose: Not Given Documented By: STEFFANY Vital Signs Vital signs: Vital Signs - 8 hr 04/03/25 07:19 Temperature 98.1 F Pulse Rate 75 Respiratory Rate 16 Blood Pressure 142/71 H Pulse Oximetry 97 Oxygen Delivery Method Room Air MDM - GI Bleed Lab Data 04/03/25 12:37 04/03/25 07:46 Labs: Lab Results 04/03/25 04/03/25 04/03/25 Range/Units 07:46 08:35 12:37 WBC 6.0 (4.5-11.0) X10^3/uL RBC 3.85 L (4.5-5.9) X10^6/uL Hgb 12.6 L 11.3 L (13.5-17.5) g/dL Hct 36.8 L 33.3 L (41-53) % MCV 95.7 (80-100) fL MCH 32.8 (26-34) PG MCHC 34.3 (30-36) % RDW 14.4 (11.6-14.8) % Plt Count 199 (150-400) X10^3/uL Neut % (Auto) 65.5 (50-75) % Lymph % (Auto) 20.8 L (25-40) % [place] % (Auto) 7.0 (3-14) % Eos % (Auto) 6.1 H (2-4) % Baso % (Auto) 0.6 (0-2) % Neut # (Auto) 3900 (8564-6673) /uL Lymph # (Auto) 1200 (7485-3759) /uL [place] # (Auto) 400 (0-900) /uL Eos # (Auto) 400 (0-450) /uL Baso # (Auto) 0 (0-100) /uL PT 11.8 (9.4-12.5) SECONDS INR 1.0 (0.9-1.3) APTT 30 (25.1-36.5) SECONDS Sodium 136 L (137-145) mmol/L Potassium 4.7 (3.4-5.1) mmol/L Chloride 109 H (98-107) mmol/L Carbon Dioxide 23 (22-32) mmol/L BUN 15 (9-20) mg/dL Creatinine 0.66 (0.66-1.25) mg/dL Estimated GFR > 60 (>60) mL/min BUN/Creatinine Ratio 22.7 H (6-22) Glucose 98 (70-99) mg/dL Calcium 9.4 (8.4-10.2) mg/dL Total Bilirubin 1.0 (0.2-1.3) mg/dL AST 32 (17-59) IU/L ALT 13 (<50) IU/L Alkaline Phosphatase 65 (38-126) U/L Total Protein 6.4 (6.3-8.2) g/dL Albumin 3.9 (3.5-5.0) g/dL Globulin 2.5 (1.7-4.1) g/dL Albumin/Globulin Ratio 1.6 (1.0-2.8) Blood Type O Positive Antibody Screen Negative Point of Care Testing Stool Occult Blood Positive Imaging Data CT scan - abdomen/pelvis: Radiologist's Impression: [address] [address] [address] Scan Report Signed Patient: Valentino Madison MR#: [id number] : 1945 Acct:[id number] Age/Sex: 80 / M Date of Service: 04/03/25 Loc: ED Accession Number: [id number] Procedure: CT angio abdomen pelvis Ordering Provider: Estevan Lambert MD PROCEDURE: CT ANGIO ABDOMEN PELVIS INDICATIONS: GI bleed TECHNIQUE: After the administration of intravenous contrast, 2.5 mm thick sections acquired from the diaphragm to the symphysis. 10 mm maximum-intensity projection (MIP) reformats were then acquired. For radiation dose reduction, the following was used: automated exposure control. COMPARISON: None. FINDINGS: Image Quality: Diagnostic. Abdominal aorta: No aortic aneurysm or evidence of acute aortic syndrome. Atherosclerotic vascular calcifications. Mesenteric arteries: Patent without hemodynamically significant stenosis. Renal arteries: Patent without hemodynamically significant stenosis. OTHER: Lower Chest: No significant findings. Liver: No solid mass. Gallbladder: No radiopaque gallstones or wall thickening. Biliary ducts: No biliary dilation. Pancreas: No ductal dilation. Spleen: Size is within normal limits. Adrenal Glands: No adrenal nodules. Kidneys and Ureters: No hydronephrosis. No solid mass. No complex renal cystic lesion which requires follow up. Stomach and Bowel: Normal colonic caliber, without significant wall thickening. Large stool burden. Contrast layering within the colon at the hepatic flexure () which is not present on noncontrast exam and increases on portal venous phase ().. There are prominent diverticula here with some mild adjacent fat stranding (4/85). Additional possible area of high attenuation within the sigmoid colon (5/118) is not appreciated on noncontrast exam (approximately series 4, image 126) or venous phase and may be artifactual. Diverticulosis is noted throughout the rest of the colon. Normal appendix. Peritoneum: No abnormal intraperitoneal fluid. No free air. Ventral Wall: No hernia. Abdominal Nodes: No retroperitoneal or mesenteric adenopathy by size criteria. Vessels: Aorta and inferior vena cava are normal in size. PELVIS: Pelvic Organs: Unremarkable. Bladder: Unremarkable. Pelvic Nodes: No enlarged lymph nodes. Miscellaneous: No inguinal hernias are seen. Bones: No aggressive osseous abnormality. Severe degenerative changes of the spine with bridging anterior osteophytes concerning for ankylosing spondylitis. Diffusely decreased osseous mineralization. IMPRESSION: 1. Findings consistent with contrast extravasation into the bowel at the hepatic flexure. 2. There are a few prominent diverticula in this area with surrounding fat stranding, this is likely reactive fat stranding and less likely diverticulitis. 3. Additional possible tiny focus of high density within the sigmoid colon is favored to be artifact, less likely additional area of bleed. 4. Large stool burden throughout the colon. 5. Severe degenerative changes with bridging anterior osteophytes concerning for ankylosing spondylitis. 6. Please see above for additional findings. Findings discussed with Dr. Lambert at the time of dictation. Dictated by: Panchito Pino M.D. on 04/03/2025 at 8:17 Approved by: Panchito Pino M.D. on 04/03/2025 at 8:32 MDM Narrative Medical decision making narrative: Patient here with . Has had 2 episodes of bright red blood per rectum this morning. Denies denies abdominal pain no back pain no chest pain. No dizziness. No previous episodes of GI bleed. Does have history of diverticulosis. Patient is not on any blood thinners. Again patient denies abdominal pain no back pain. Patient did have colonoscopy 2016 and diagnosed with diverticulosis. No prior history of diverticulitis. Patient in no distress. Has history of hemorrhoids. After history and exam, CBC CMP PT INR PTT type and screen CT angio abdomen pelvis normal saline [facility] Medical records reviewed: No recent visit for this complaint Differential considered: Includes but not limited to diverticular bleed, hemorrhoids, neoplasm Lab Test results independently reviewed as above. Pertinent findings: WBC 6.0 hemoglobin 12.6 hematocrit 36 platelets 199 INR 1.0 AST 32 ALT 13 Imaging studies independently reviewed: CT abdomen pelvis hepatic flexure bleed Consultations: 8:45 a.m.. Spoke with [facility], GI, dr harrell, she will accept patient however hospitalist to admit. They will bowel prep once patient arrives there and plan for endoscopy tomorrow 10:59 a.m.. Spoke with [facility] lopes hospitalist, Dr. Wilhelm, she will admit patient. They will consult GI services Re-evaluations: 8:30 a.m.. Updated patient and results. Will need transfer for GI bleed. At this time uncertain destination/Hospital gas we do not have GI services. 8:50 a.m.. 400 mL of dark blood in commode 9:30 a.m.. Patient had another 400 mL of dark blood and commode Discussion: Appropriate for transfer higher level of care patient will need GI services. Patient has remained hemodynamically stable. Did receive IV fluids. No transfusion indicated at this time. Diagnosis: Lower GI bleed Discharge Plan Departure Patient Disposition: [facility] Clinical Impression: Acute lower GI bleeding Prescriptions: No Action loratadine [Claritin] 10 MG tablet 10 mg PO PRN Qty: 0 aspirin [Adult Low Dose Aspirin] 81 mg tablet,delayed release (DR/EC) 81 mg PO DAILY cholecalciferol (vitamin D3) 25 mcg (1,000 unit) capsule 1,000 unit PO DAILY multivitamin Tablet 1 tab PO DAILY ketotifen fumarate [Zaditor] 0.025 % (0.035 %) drops 1 drp EYE-BOTH PRN amlodipine 5 mg tablet 5 mg PO DAILY Qty: 90 1RF irbesartan 300 mg tablet 300 mg PO BEDTIME Qty: 90 1RF simvastatin 5 mg tablet See Rx Instructions .ROUTE .COMPLEX Qty: 90 1RF Dose Instruction: TAKE ONE TABLET BY MOUTH AT BEDTIME Rx Instructions: TAKE ONE TABLET BY MOUTH AT BEDTIME acetaminophen [Tylenol] 325 mg capsule 650 mg PO QID PRN (Reason: pain) Qty: 60 0RF Referrals: Adenike Chandra DO [Primary Care Provider, Medical]
[2025-04-03 07:55] LABS: Add Manual Diff / Slide Review NO; Hematocrit 36.8 % (41-53); Hemoglobin 12.6 g/dL (13.5-17.5); Lymphocytes Absolute Auto 1200 /uL (1100-4500); Mean Corpuscular HGB Conc 34.3 % (30-36); Mean Corpuscular Hemoglobin 32.8 PG (26-34); Mean Corpuscular Volume 95.7 fL (80-100); Platelet Count 199 X10^3/uL (150-400)
[2025-04-03 08:01] LABS: INR 1.0 (0.9-1.3); Prothrombin Time 11.8 SECONDS (9.4-12.5)
[2025-04-03 08:04] LABS: PTT Partial Thromboplastin Tim 30 SECONDS (25.1-36.5)
[2025-04-03 08:05] LABS: Alanine Aminotransferase 13 IU/L (<50); Albumin 3.9 g/dL (3.5-5.0); Albumin Globulin Ratio 1.6 (1.0-2.8); Alkaline Phosphatase 65 U/L (38-126); Blood Urea Nitrogen 15 mg/dL (9-20); Calcium 9.4 mg/dL (8.4-10.2); Carbon Dioxide 23 mmol/L (22-32); Chloride 109 mmol/L (98-107); Estimated Glomerular Filt Rate > 60 mL/min (>60); Globulin 2.5 g/dL (1.7-4.1); Glucose 98 mg/dL (70-99); Potassium 4.7 mmol/L (3.4-5.1); Sodium 136 mmol/L (137-145); Total Protein 6.4 g/dL (6.3-8.2)
[2025-04-03 08:06] LABS: HEMOLYSIS 78 (0-50)
[2025-04-03] MEDS: SODIUM CHLORIDE 0.9% 500 ML 1000 ML IV (08:27)
--- NOTE | 2025-04-03 11:28 | PC.NURSE ---
pt in bed resting. his abd is soft and non tender. He is alert and oriented and not in acute distress. His vital signs are within normal limits. He states dizziness on ambulation and is currently laying supine in the stretcher.
[2025-04-03 12:42] LABS: Hematocrit 33.3 % (41-53); Hemoglobin 11.3 g/dL (13.5-17.5)
== END 2025-04-03 12:59 | disposition short-term general hospital (02) ==
PROVIDERS: Emergency Provider Emergency Medicine; PCP Family Medicine
DX: K92.2 Gastrointestinal hemorrhage, unspecified (principal); Z87.19 Personal history of other diseases of the digestive system
CPT/HCPCS: 74174; 80053; 82272; 85014; 85018; 85025; 85610; 85730; 86850; 86900; 86901; 96360; 96361; 99284

== ENCOUNTER → 2025-04-09 10:24 | Outpatient (CLI) | payer MEDICARE, OTHER, SELFPAY ==
[2025-04-09 10:57] LABS: Add Manual Diff / Slide Review NO; Hematocrit 25.6 % (41-53); Hemoglobin 9.0 g/dL (13.5-17.5); Lymphocytes Absolute Auto 1000 /uL (1100-4500); Mean Corpuscular HGB Conc 35.3 % (30-36); Mean Corpuscular Hemoglobin 33.8 PG (26-34); Mean Corpuscular Volume 95.6 fL (80-100); Platelet Count 274 X10^3/uL (150-400)
[2025-04-09 11:10] LABS: Alanine Aminotransferase 16 IU/L (<50); Albumin 3.9 g/dL (3.5-5.0); Albumin Globulin Ratio 1.8 (1.0-2.8); Alkaline Phosphatase 69 U/L (38-126); Blood Urea Nitrogen 8 mg/dL (9-20); Calcium 9.6 mg/dL (8.4-10.2); Carbon Dioxide 27 mmol/L (22-32); Chloride 106 mmol/L (98-107); Cholesterol 134 mg/dL (140-199); Estimated Glomerular Filt Rate > 60 mL/min (>60); Globulin 2.2 g/dL (1.7-4.1); Glucose 95 mg/dL (70-99); HDL Cholesterol 54 mg/dL (40-60); HEMOLYSIS < 15 (0-50); Potassium 4.2 mmol/L (3.4-5.1); Sodium 138 mmol/L (137-145); Total Protein 6.1 g/dL (6.3-8.2); Triglycerides 49 mg/dL (35-150)
[2025-04-10 04:11] LABS: CRP, High Sensitivity 0.25 mg/L (0.00-3.00)
== END ==
PROVIDERS: PCP Family Medicine; Referring Provider Family Medicine; Visit Provider Family Medicine
DX: Z00.00 Encounter for general adult medical examination without abnormal findings (principal); I10 Essential (primary) hypertension; E78.5 Hyperlipidemia, unspecified; R00.1 Bradycardia, unspecified; D64.9 Anemia, unspecified; K92.2 Gastrointestinal hemorrhage, unspecified
CPT/HCPCS: 36415; 80053; 80061; 85025; 86140

== ENCOUNTER → 2025-04-25 07:01 | Outpatient (CLI) | payer MEDICARE, OTHER, SELFPAY ==
[2025-04-25 08:20] LABS: Add Manual Diff / Slide Review NO; Hematocrit 31.2 % (41-53); Hemoglobin 10.7 g/dL (13.5-17.5); Lymphocytes Absolute Auto 1600 /uL (1100-4500); Mean Corpuscular HGB Conc 34.5 % (30-36); Mean Corpuscular Hemoglobin 32.5 PG (26-34); Mean Corpuscular Volume 94.3 fL (80-100); Platelet Count 238 X10^3/uL (150-400)
[2025-04-25 09:11] LABS: Ferritin 18 ng/mL (18-464)
== END ==
PROVIDERS: PCP Family Medicine; Referring Provider Family Medicine; Visit Provider Family Medicine
DX: K92.2 Gastrointestinal hemorrhage, unspecified (principal)
CPT/HCPCS: 36415; 82728; 85025

== ENCOUNTER → 2025-05-30 07:14 | Outpatient (CLI) | payer MEDICARE, OTHER, SELFPAY ==
[2025-05-30 08:36] LABS: Add Manual Diff / Slide Review NO; Hematocrit 34.9 % (41-53); Hemoglobin 11.6 g/dL (13.5-17.5); Lymphocytes Absolute Auto 1100 /uL (1100-4500); Mean Corpuscular HGB Conc 33.1 % (30-36); Mean Corpuscular Hemoglobin 29.9 PG (26-34); Mean Corpuscular Volume 90.3 fL (80-100); Platelet Count 254 X10^3/uL (150-400)
[2025-05-30 09:11] LABS: Alanine Aminotransferase 14 IU/L (<50); Albumin 3.9 g/dL (3.5-5.0); Albumin Globulin Ratio 1.6 (1.0-2.8); Alkaline Phosphatase 84 U/L (38-126); Blood Urea Nitrogen 13 mg/dL (9-20); Calcium 10.0 mg/dL (8.4-10.2); Carbon Dioxide 27 mmol/L (22-32); Chloride 106 mmol/L (98-107); Cholesterol 144 mg/dL (140-199); Estimated Glomerular Filt Rate > 60 mL/min (>60); Globulin 2.4 g/dL (1.7-4.1); Glucose 86 mg/dL (70-99); HDL Cholesterol 82 mg/dL (40-60); HEMOLYSIS < 15 (0-50); Potassium 4.2 mmol/L (3.4-5.1); Sodium 138 mmol/L (137-145); Total Protein 6.3 g/dL (6.3-8.2); Triglycerides 37 mg/dL (35-150)
[2025-05-31 04:12] LABS: CRP, High Sensitivity 0.39 mg/L (0.00-3.00)
== END ==
PROVIDERS: PCP Family Medicine; Referring Provider Family Medicine; Visit Provider Family Medicine
DX: E78.5 Hyperlipidemia, unspecified (principal); K92.2 Gastrointestinal hemorrhage, unspecified; I10 Essential (primary) hypertension; E78.2 Mixed hyperlipidemia
CPT/HCPCS: 36415; 80053; 80061; 85025; 86140

== ENCOUNTER → 2025-07-21 06:58 | Outpatient (CLI) | payer MEDICARE, OTHER, SELFPAY ==
[2025-07-21 07:31] LABS: Hematocrit 37.1 % (41-53); Hemoglobin 12.4 g/dL (13.5-17.5); Mean Corpuscular HGB Conc 33.5 % (30-36); Mean Corpuscular Hemoglobin 29.2 PG (26-34); Mean Corpuscular Volume 87.2 fL (80-100); Platelet Count 205 X10^3/uL (150-400)
[2025-07-21 08:31] LABS: Ferritin 11 ng/mL (18-464)
== END ==
PROVIDERS: PCP Family Medicine; Referring Provider Family Medicine; Visit Provider Family Medicine
DX: D64.9 Anemia, unspecified (principal); R53.83 Other fatigue
CPT/HCPCS: 36415; 82728; 85027